=== PATIENT | male | born 1945 | race Caucasian/White ===

== ENCOUNTER 2019-07-30 09:05 | Emergency (ER) | payer MEDICARE, BC, SELFPAY ==
[2019-07-30 09:10] VITALS: BP 145/82; PULSE 106; RESP 20; TEMP 36.8; O2SAT 97
--- NOTE | 2019-07-30 09:35 | ED.GENADULT ---
HPI - General Adult General Chief complaint: Urogenital-Male Stated complaint: PROBLEMS URINATING Time Seen by Provider: 07/30/19 09:39 Source: patient and RN notes reviewed Mode of arrival: ambulatory Limitations: no limitations History of Present Illness HPI narrative: This is a 73 years old male presents to the office for an evaluation for possible UTI. Symptoms began three days ago with urinary pain, burning and suprapubic discomfort.He bought a home urine test kit which showed that he had UTI; so his give him her antibiotic)(cefuroxime) to take which she normally takes for her UTI. He took two days of it, which he develops diarrhea; so he stops and takes probiotic instead. Denies history of UTI in the past. Related Data Home Medications Medication Instructions Recorded Confirmed Probiotic 07/30/19 Senior Vitamin 07/30/19 ascorbic acid (vitamin C) [Vitamin 1 g PO DAILY 07/30/19 07/30/19 C] aspirin 81 mg PO DAILY 07/30/19 07/30/19 clopidogrel [Plavix] 75 mg PO DAILY 07/30/19 07/30/19 coQ10 (ubiquinol) 100 mg PO DAILY 07/30/19 07/30/19 ezetimibe 10 mg PO DAILY 07/30/19 07/30/19 fluocinonide TOPICAL 07/30/19 magnesium 07/30/19 metoprolol succinate 25 mg PO DAILY 07/30/19 07/30/19 nitroglycerin [Nitrostat] 0.3 mg SUBLINGUAL Q5-15M PRN 07/30/19 07/30/19 pantoprazole 40 mg PO DAILY 07/30/19 07/30/19 ramipril 5 mg PO DAILY 07/30/19 07/30/19 rosuvastatin 10 mg PO 3XW 07/30/19 07/30/19 Allergies Allergy/AdvReac Type Severity Reaction Status Date / Time Penicillins Allergy Mild Rash Verified 07/30/19 09:20 Review of Systems Review of Systems: Narrative: CONSTITUTIONAL:Reports fever and chills; but controlled with tylenol CARDIOVASCULAR: Denies chest pain, edema. RESPIRATORY: Denies cough GASTROINTESTINAL: Denies nausea or vomiting. Reports diarrhea with antibiotic which stopped after he stops taking it. GENITOURINARY:Denies penile discharge or bright blood SKIN: Denies rash MUSCULOSKELETAL: Denies acute back pain NEUROLOGIC: Denies lightheaded or dizziness PMFSH Past Medical History Medical History History of shingles HLD (hyperlipidemia) HTN (hypertension) IBS (irritable bowel syndrome) MRSA (methicillin resistant Staphylococcus aureus) TIA (transient ischemic attack) Surgical History Surgical History H/O heart artery stent Hx of appendectomy Social History Social History (Updated 07/30/19 @ 09:56 by DOLORES Billy) Smoking status: Never smoker Comments At time of signature, I agree with nursing past medical, surgical, social and family history. There is no relevant family history pertinent to the presenting complaint. Exam Narrative: Exam Narrative: GENERAL: This is a well-nourished, well-developed patient, in no apparent distress. CARDIOVASCULAR: Regular rate and rhythm without murmurs, gallops, or rubs. RESPIRATORY: Clear to auscultation. Breath sounds equal bilaterally. No wheezes, rales, or rhonchi. GASTROINTESTINAL: Abdomen soft, non-tender, nondistended. Bowel sounds are active. No hepato-splenomegaly, or palpable masses. No guarding. SKIN: warm, intact with no suspicious lesions or rash, good texture and turgor. NEURO: awake, alert, and oriented to person, place and time. There were no obvious focal neurologic abnormalities. Steady gait [place] Coma Scale Eye Opening: Spontaneous 4 Rene Coma Scale Motor: Obeys Commands 6 Rene Coma Scale Verbal: Oriented 5 Course Vital Signs Vital signs: Vital Signs Temperature 98.2 F 07/30/19 09:10 Pulse Rate 106 H 07/30/19 09:10 Respiratory Rate 07/30/19 09:10 Blood Pressure 145/82 H 07/30/19 09:10 Pulse Oximetry 97 07/30/19 09:10 Temperature 98.2 F 07/30/19 09:10 Pulse Rate 106 H 07/30/19 09:10 Respiratory Rate 07/30/19 09:10 Blood Pressure 145/82 H 07/30/19 09:10 Pulse Oxi
== END 2019-07-30 09:55 | disposition home or self-care (01) ==
PROVIDERS: Emergency Provider Nurse Practitioner; PCP Internal Medicine
DX: N30.01 Acute cystitis with hematuria (principal); R78.5 Finding of other psychotropic drug in blood; I10 Essential (primary) hypertension; Z86.73 Personal history of transient ischemic attack (TIA), and cerebral infarction without residual deficits; Z86.14 Personal history of Methicillin resistant Staphylococcus aureus infection
CPT/HCPCS: 81003; 87077; 87086; 87088; 87186; 99213; G0463

== ENCOUNTER 2020-06-02 16:39 | Inpatient (IN) | payer MEDICARE, BC, SELFPAY ==
[2020-06-02] VITALS (7 sets, daily range): BP systolic 134–168; BP diastolic 68–80; PULSE 78–115; RESP 18–20; TEMP 36.8–39.4; O2SAT 90–97; BMI 28.3
--- NOTE | ~2020-06-02 | XR_ITS ---
EXAMINATION: XR chest 1V portable DATE: 06/02/2020 17:37 INDICATION: Cough, shortness of breath and chest tightness. TECHNIQUE: frontal view of the chest was obtained. COMPARISON: Chest radiograph dated 05/01/2018 FINDINGS: Scattered bilateral airspace opacities most prominent in the right mid and left lower lung zones. No pleural effusion or pneumothorax. The cardiomediastinal silhouette is within normal limits for AP gurpreet hnique. Median sternotomy wires and mediastinal surgical clips are seen, likely from prior coronary a rtery bypass grafting. IMPRESSION: 1. Mild scattered bilateral opacities most prominent in the right mid and left lower lung zones which could represent atelectasis, pneumonia, pulmonary edema or some combination thereof. Reviewed, dictated and finalized at location A. GER POKER
--- NOTE | ~2020-06-02 | CT_ITS ---
EXAMINATION: CTA chest PE protocol DATE: 06/03/2020 14:24 OBIEE REPORT DEVELOPER INDICATION: Pleuritic discomfort. Elevated d-dimer. TECHNIQUE: Computed tomographic angiography (CTA) of the chest was performed with 100 mL Omnipaque-35 0 intravenous contrast. The dose-length product was 470.96 mGy-cm. Maximum intensity projection 3D-re constructions of the aorta and other arteries were constructed by the technologist on a separate work station. Automated exposure control and iterative reconstruction technique were employed. COMPARISON: Chest x-ray dated 06/02/2020. FINDINGS: Study is technically adequate without evidence for pulmonary embolism. There is mild medias tinal lymphadenopathy, likely reactive. No significant pleural or pericardial effusion. Moderate size hiatal hernia. No significant pleural or pericardial effusion. There is patchy groundglass opacification throughout both lungs, compatible with pneumonia. No endobr onchial lesions. No pneumothorax. Status post median sternotomy for CABG. Mild thoracic spondylosis. There is a 12 mm hypovascular lesion left hepatic lobe, image 27 the. There is a second hypovascular lesion of the right hepatic lobe with peripheral calcification measuring 10 mm, image 162. Consider c orrelation with ultrasound. IMPRESSION: 1. No evidence for pulmonary embolism. 2: Patchy extensive groundglass opacification throughout both lungs, compatible with pneumonia. 3: Mediastinal lymphadenopathy, likely reactive. 4: Moderate size hiatal hernia. Reviewed, dictated and finalized at location B. E REPORT DEVELOPER IMPRESSION: 1. No evidence for pulmonary embolism. 2: Patchy extensive groundglass opacification throughout both lungs, compatibl e with pneumonia. 3: Mediastinal lymphadenopathy, likely reactive. 4: Moderate size hiatal hernia.
--- NOTE | ~2020-06-02 | XR_ITS ---
EXAMINATION: XR chest 1V portable INDICATION: Shortness of breath, history of COVID 19 TECHNIQUE: Portable AP chest at 1141 hours COMPARISON: 06/02/2020 FINDINGS: Airspace opacities in the right upper lung zone have improved. There are worsening airspace opacities in the left mid and lower lung zones. Right basilar airspace opacities are stable. Small l eft pleural effusion is suggested. Heart size is normal. There is no pneumothorax. Median sternotomy wires and mediastinal surgical clips are seen, likely from prior coronary artery bypass grafting. IMPRESSION: 1. Airspace opacities with improvement on the right and worsening in the left mid and lower lung zone s, consistent with pneumonia. 2. Small left pleural effusion. Reviewed, dictated and finalized at location A. L WORKER IMPRESSION: 1. Airspace opacities with improvement on the right and worsening in the left m id and lower lung zones, consistent with pneumonia. 2. Small left pleural effusion.
--- NOTE | ~2020-06-02 | XR_ITS ---
XR chest 1V portable DATE: 06/08/2020 10:12 INDICATION: Covid 19 pneumonia. TECHNIQUE: Portable AP chest on June 08, 2020 at 1008 hours COMPARISON: April 05, 2021 portable AP chest at 1141 hours FINDINGS: Status post sternotomy. Heart size within normal range. Aortic arch calcification. Patchy infiltrates predominantly in the mid and lower lung zones persist relatively unchanged since F ebruary 03/2021. Diffuse osteopenia.. IMPRESSION: Persistent patchy bilateral predominantly mid and lower lung zone infiltrates Reviewed, dictated and finalized at location A. RESS IMPRESSION: Persistent patchy bilateral predominantly mid and lower lung zone i nfiltrates
--- NOTE | 2020-06-02 17:21 | ECG_ITS ---
Measurements Intervals [place] Rate: 109 P: 63 CO: 149 QRS: 61 QRSD: 93 T: 52 QT: 336 QTc: 453 Interpretive Statements SINUS TACHYCARDIA NONSPECIFIC T-WAVE ABNORMALITY- DIFFUSE LEADS BASELINE ARTIFACT- I, III, AVR, AVL, V3 ABNORMAL ECG Electronically Signed On 06-03-2020 6:55:02 CNC MILL PROGRAMMER by Mars Cabezas D.O.
--- NOTE | 2020-06-02 17:48 | ED.GENADULT ---
HPI - General Adult General Chief complaint: Upper Respiratory Infection Stated complaint: PCP WANTS COVID TEST, CHEST TIGHTNESS, SOB Time Seen by Provider: 06/02/20 17:19 Source: patient History of Present Illness HPI narrative: Patient is a 74 y/o male complaining moderate SOB for 2 weeks. He states that his SOB is worse last 1-2 days. His SOB is worse with exertion. He has fever upto 102.5 today. He took Tylenol which helped with his fever. He states that he was give Z-pack and Medrol dose pack recently by PCP. His PCP wants to him to come here for COVID testing. Related Data Home Medications Medication Instructions Recorded Confirmed Probiotic 07/30/19 Senior Vitamin 07/30/19 ascorbic acid (vitamin C) [Vitamin 1 g PO DAILY 07/30/19 07/30/19 C] aspirin 81 mg PO DAILY 07/30/19 07/30/19 clopidogrel [Plavix] 75 mg PO DAILY 07/30/19 07/30/19 coQ10 (ubiquinol) 100 mg PO DAILY 07/30/19 07/30/19 ezetimibe 10 mg PO DAILY 07/30/19 07/30/19 fluocinonide TOPICAL 07/30/19 magnesium 07/30/19 metoprolol succinate 25 mg PO DAILY 07/30/19 07/30/19 nitroglycerin [Nitrostat] 0.3 mg SUBLINGUAL Q5-15M PRN 07/30/19 07/30/19 pantoprazole 40 mg PO DAILY 07/30/19 07/30/19 ramipril 5 mg PO DAILY 07/30/19 07/30/19 rosuvastatin 10 mg PO 3XW 07/30/19 07/30/19 Allergies Allergy/AdvReac Type Severity Reaction Status Date / Time Penicillins Allergy Mild Rash Verified 07/30/19 09:20 Review of Systems Constitutional: Constitutional: Denies chills, Reports fever(s), Reports headache(s) and Denies weakness Eyes: Eyes: Denies blurry vision ENT: Reports headache(s) and Denies neck pain Cardiovascular: Cardiovascular: Denies chest pain and Reports dyspnea Respiratory: Respiratory: Reports cough and Reports dyspnea Gastrointestinal: Gastrointestinal: Denies abdominal pain, Denies diarrhea, Denies nausea and Denies vomiting Genitourinary: Genitourinary: Denies hematuria and Denies dysuria Musculoskeletal: Musculoskeletal: Denies back pain and Denies neck pain Neurologic: Reports headache(s) and Denies weakness [facility] Past Medical History Medical History (Updated 06/02/20 @ 21:45 by Kat Kay MD) History of shingles HLD (hyperlipidemia) HTN (hypertension) IBS (irritable bowel syndrome) MRSA (methicillin resistant Staphylococcus aureus) TIA (transient ischemic attack) Surgical History Surgical History H/O heart artery stent Hx of appendectomy Social History Social History Smoking status: Never smoker Exam Const: General: no acute distress and well developed Orientation/consciousness: oriented to person, oriented to place, oriented to time and patient oriented x3 HENMT: Head: normocephalic Ears: external ears normal General nose exam: Normal external nose present Eyes: General: appearance normal, both eyes and all related structures Conjunctivae: conjunctivae normal Neck: Neck: normal visual inspection and full ROM Chest: Chest palpation & inspection: normal inspection of the chest and no tenderness Resp: Effort & Inspection: normal respiratory effort Auscultation: clear to auscultation bilaterally Cardio: Rate: tachycardic Rhythm: regular rhythm GI: GI Palp: No abdominal tenderness and Yes Soft to palpation Skin: General skin exam: normal color and turgor normal Neuro: General: oriented to person, oriented to place, oriented to time and patient oriented x3 Cognition (Neuro): normal cognition Extrem: General: normal to inspection, full ROM and no pedal edema Psych: Appearance: grossly normal Mental Status: mental status grossly normal Affect: normal affect Course Consultations Consultation #1: Discussed with ENRIQUE Ordaz, who agrees to admit. Date: 06/02/20 Time: 19:45 Vital Signs Vital signs: Vital Signs Temperature 36.8 C 06/02/20 17:25 Pulse Rate 108 H 06/02/20 17:25 Respirator
[2020-06-02 18:30] LABS: Basophils Percent Auto 0.2 % (0.2-1.2); Hematocrit 48.4 % (42.0-52.0); Immature Granulocyte Absolute 0.06 K/mm3 (0.00-0.031); Immature Granulocyte Percent A 0.6 % (0-0.5); Lymphocytes Absolute Auto 1.29 K/mm3 (0.9-3.2); Lymphocytes Percent Auto 13.8 % (18.3-44.2); Mean Corpuscular HGB Conc 33.1 g/dl (32-36); Mean Corpuscular Hemoglobin 29.7 pg (26-34); Mean Corpuscular Volume 89.8 fl (80-100); Mean Platelet Volume 9.3 fl (7.4-10.4); Monocytes Absolute Auto 0.2 K/mm3 (0.1-0.6); Monocytes Percent Auto 2.2 % (2.6-8.5); Neutrophils Absolute Auto 7.8 K/mm3 (1.3-6.7); Neutrophils Percent Auto 83.2 % (45.5-73.1); Platelet Count Result 305 k/mm3 (150-375); Red Blood Count 5.39 M/mm3 (4.6-6.20); Red Cell Distribution Width 14.3 % (11.5-14.5); White Blood Count 9.4 K/mm3 (4.5-10.0)
[2020-06-02 18:45] LABS: Alanine Aminotransferase 77 U/L (4-50); Alkaline Phosphatase 79 U/L (38-126); Anion Gap 5 mmol/L (8-16); Aspartate Amino Transferase 83 U/L (17-59); Bilirubin,Total 0.5 mg/dL (0.2-1.3); Blood Urea Nitrogen 32 mg/dL (9-20); Calcium 8.9 mg/dL (8.4-10.2); Carbon Dioxide 31 mmol/L (22-30); Chloride 106 mmol/L (98-107); Estimated CRCL calculation 35 ml/min; Estimated Glomerular Filt Rate 50; Glucose 116 mg/dL (75-110); Potassium 4.5 mmol/L (3.4-5.0); Sodium 142 mmol/L (137-145)
[2020-06-02 18:53] LABS: NT Pro B Type Natriuretic Pept 221 PG/ML (5-100)
[2020-06-02 18:56] LABS: Troponin I < 0.012 ng/mL (0.000-0.034)
[2020-06-02] MEDS: SODIUM CHLORIDE 0.9% IV 1,000 ML 999 ML IV CONT (19:58)
[2020-06-02] MEDS: DEXAMETHASONE SOD PHOS INJ 4 MG/ML VIAL 6 MG IV PUSH (21:02)
--- NOTE | 2020-06-02 21:42 | ADMGEN ---
This patient, Meir Ramírez, was admitted to 3 [facility] Surg Room 320-01. Patient/family oriented to hospital policies and general routines including ID bracelet, bed and alarms, visiting hours, pain management, procedures, bathroom and other care routines, personal items, smoking policy, room service/diet, and visiting hours. Information on how to activate the Rapid Response Team has been discussed. Patient/Family are encouraged to report perceived risks to care and to ask questions if they do not understand what they are told or what they should do.
[2020-06-02] MEDS: ACETAMINOPHEN 325 MG TABLET 650 MG PO (22:49)
[2020-06-02 23:53] LABS: Troponin I 0.024 ng/mL (0.000-0.034)
[2020-06-03] VITALS (12 sets, daily range): BP systolic 133–143; BP diastolic 56–71; PULSE 73–113; RESP 18–22; TEMP 36.5–37.7; O2SAT 90–93
--- NOTE | 2020-06-03 01:50 | PM.IMHP ---
H&P: HPI History of Present Illness Date/Time: 06/03/20 03:30 Chief Complaint: I think I have Covid Narrative: Meir Ramírez is a 74 year old male with a past medical history of coronary artery disease, hypertension, and distant history of tobacco use who presented to the ER. The patient reports that he was exposed to Covid about 2 weeks ago when his granddaughter was exposed at school. Several days later he began having fevers, nonproductive cough, mild headache and fatigue. Then on the he developed dyspnea on exertion and could not make it more than a few feet. He denies any lower extremity swelling, orthopnea or paroxysmal nocturnal dyspnea. He noticed that his pulse ox had dropped from prior values of 98% down to 90% and subsequently came to the ER. 90% on 2 L nasal cannula. He reports pleuritic chest pain. He reports that his fever was as high as 102. He denies loss of sense of taste or smell. He has been having some looser stools once or twice a day. He denies any abdominal pain. He has been trying to drink plenty of fluids. He drinks decaffeinated tea by the [employer]. Review of Systems Review of Systems: Narrative: 12 systems were reviewed with pertinent positives and negatives per HPI. Except as documented in the HPI, all other systems were reviewed and are negative. [facility] Past Medical History Medical History (Updated 06/03/20 @ 04:30 by Jany Robert DO) Carotid stenosis, bilateral With complete occlusion of the left carotid since 1996 Coronary artery disease Dyslipidemia Eczema Essential hypertension History of shingles IBS (irritable bowel syndrome) MRSA (methicillin resistant Staphylococcus aureus) Skin cancer Resected from forehead Spinal stenosis TIA (transient ischemic attack) Surgical History Surgical History (Updated 06/03/20 @ 04:30 by Jany Robert DO) Femoral artery stenosis, left With stent placement History of right inguinal hernia repair Approximately 2004 Hx of appendectomy Hx of CABG 3 vessel CABG 1996 Family History Family History (Updated 06/03/20 @ 04:33 by Jany Robert DO) Father Acute myocardial infarction, Onset Age: 40 Heart disease Mother Heart disease Social History Social History (Updated 06/03/20 @ 04:48 by Jany Robert DO) Social History: He lives in [place] with his of 44 years. They have 3 daughters who are in good health. 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 He is a former smoker and smoked 2 packs per day for approximately 38 years and quit smoking in 1996. He does not drink alcohol use illicit substances. Primary care physician: Dr. Mirza Moore Code status: Full code Surrogate decision maker: Smoking status: Former smoker Tobacco type: cigarettes Smoking end date: 06/23/96 Alcohol intake: never Substance use: never Spiritual care concerns: No Meds Home Medications and Allergies Home Medications Medication Instructions Recorded Confirmed Type ascorbic acid (vitamin C) [Vitamin 1 g PO DAILY 07/30/19 06/02/20 History C] aspirin 81 mg PO DAILY 07/30/19 06/02/20 History clopidogrel [Plavix] 75 mg PO DAILY 07/30/19 06/02/20 History coQ10 (ubiquinol) 100 mg PO DAILY 07/30/19 06/02/20 History magnesium 400 mg PO HS 07/30/19 06/02/20 History metoprolol succinate 25 mg PO DAILY 07/30/19 06/02/20 History nitroglycerin [Nitrostat] 0.3 mg SUBLINGUAL Q5-15M PRN 07/30/19 06/02/20 History pantoprazole 40 mg PO DAILY 07/30/19 06/02/20 History ramipril 5 mg PO DAILY 07/30/19 06/02/20 History rosuvastatin 10 mg PO 3XW 07/30/19 06/02/20 History Allergies Allergy/AdvReac Type Severity Reaction Status Date / Time Penicillins Allergy Mild Rash Verified 07/30/19 09:20 Vital Signs Vital Signs - 24 hr 06/02/20 17:25 06/02/20 19:59 06/02/20 20:00 Temperature 98.2 F Pulse Rate 108 H 78 Respiratory Rate 20 18 Blood P
[2020-06-03 07:35] LABS: Hematocrit 42.5 % (42.0-52.0); Hemoglobin 13.8 g/dL (14.0-18.0); Mean Corpuscular HGB Conc 32.5 g/dl (32-36); Mean Corpuscular Hemoglobin 28.8 pg (26-34); Mean Corpuscular Volume 88.7 fl (80-100); Mean Platelet Volume 9.4 fl (7.4-10.4); Platelet Count Result 286 k/mm3 (150-375); Red Blood Count 4.79 M/mm3 (4.6-6.20); Red Cell Distribution Width 13.9 % (11.5-14.5); White Blood Count 8.6 K/mm3 (4.5-10.0)
[2020-06-03 07:51] LABS: Alanine Aminotransferase 54 U/L (4-50); Albumin Level 3.3 g/dL (3.5-5.1); Alkaline Phosphatase 58 U/L (38-126); Anion Gap 6 mmol/L (8-16); Aspartate Amino Transferase 57 U/L (17-59); Bilirubin,Total 0.4 mg/dL (0.2-1.3); Blood Urea Nitrogen 23 mg/dL (9-20); Calcium 8.4 mg/dL (8.4-10.2); Carbon Dioxide 25 mmol/L (22-30); Chloride 109 mmol/L (98-107); Estimated CRCL calculation 64 ml/min; Estimated Glomerular Filt Rate > 60; Glucose 139 mg/dL (75-110); Lactate Dehydrogenase 767 U/L (313-618); Potassium 4.5 mmol/L (3.4-5.0); Sodium 140 mmol/L (137-145)
[2020-06-03 08:50] LABS: Hepatitis B Surface Antigen Negative (Negative)
[2020-06-03 08:56] LABS: HAV RESULT Negative (Negative); Hepatitis B Core IgM Result Negative (Negative)
[2020-06-03] MEDS: CLOPIDOGREL BISULFATE 75 MG TABLET PO (09:05)
[2020-06-03] MEDS: METOPROLOL SUCCINATE EXT REL 25 MG TABCR PO (09:05)
[2020-06-03] MEDS: ASCORBIC ACID 500 MG TABLET 1000 MG PO (09:05)
[2020-06-03 09:07] LABS: Hepatitis C Virus Antibody Negative (Negative)
[2020-06-03] MEDS: ramipriL 5 MG CAPSULE PO (09:09)
[2020-06-03] MEDS: ENOXAPARIN 40 MG/0.4 ML SYRINGE SUB-Q ×2 (09:09→20:50)
[2020-06-03] MEDS: ASPIRIN 81 MG ENTERIC TABLET PO (09:09)
[2020-06-03] MEDS: PANTOPRAZOLE 40 MG TABLET PO (09:09)
[2020-06-03] MEDS: ALBUTEROL SULFATE (*SP) AEROSOL 1 PUFF 6 PUFF INHALATION ×3 (09:15→20:51)
--- NOTE | 2020-06-03 13:24 | PM.IMPN ---
Progress Note: A&P Assessment and Plan (1) Acute respiratory failure with hypoxia: Code(s): J96.01 - Acute respiratory failure with hypoxia Status: Acute Assessment and Plan: Likely secondary to COVID-19 pneumonia given possible exposure, chest imaging, and acute phase reactants. Chest CTA negative for pulmonary embolism and was ordered due to D-dimer 1.3 and pleuritic discomfort. SARS-CoV-2 testing is ordered and pending. He is on 2 liters per nasal cannula today. Continue supplemental oxygen as needed to maintain oxygen saturation >90%, wean as tolerated Continue plan for treatment of pneumonia as outlined below (2) Pneumonia: Qualifiers: Pneumonia type: due to unspecified organism Laterality: bilateral Lung location: unspecified part of lung Qualified Code(s): J18.9 - Pneumonia, unspecified organism Code(s): J18.9 - Pneumonia, unspecified organism Status: Acute Assessment and Plan: The patient presented with non-productive cough, fever, mild headache and fatigue. CXR demonstrated mild scattered bilateral opacities and chest CTA is negative for pulmonary embolism but does show patchy, extensive ground glass opacities compatible with pneumonia. He has a possible COVID exposure as well. Pneumonia is likely secondary to COVID-19 infection. Continue empiric IV ceftriaxone and azithromycin ( day 2 - initiated 06/02/20) while awaiting SARS-CoV-2 testing results Continue dexamethasone (day 2 - initiated 06/02/20). Add remdesivir if SARS-CoV-2 testing is positive. Continue supportive care with albuterol per MDI, expectorant, tylenol as needed for fever, PEP therapy Continue isolation precautions Obtain urinary pneumococcal and legionella antigen testing and sputum culture Blood cultures obtained and pending (3) Person under investigation for COVID-19: Code(s): Z20.822 - Contact with and (suspected) exposure to COVID-19 Status: Acute Assessment and Plan: He reported possible exposure. SARS-CoV-2 testing ordered and pending. Continue isolation precautions Await results of testing (4) Sepsis: Qualifiers: Sepsis type: sepsis due to unspecified organism Sepsis acute organ dysfunction status: with acute organ dysfunction Severe sepsis acute organ dysfunction type: acute respiratory failure Acute respiratory failure type: with hypoxia Severe sepsis shock status: without septic shock Qualified Code(s): A41.9 - Sepsis, unspecified organism; R65.20 - Severe sepsis without septic shock; J96.01 - Acute respiratory failure with hypoxia Code(s): A41.9 - Sepsis, unspecified organism Status: Acute Assessment and Plan: Met on admission with fever and tachycardia. Blood pressures are stable and a bit elevated. Blood cultures were obtained and are pending. Await results of blood cultures Continue empiric IV antibiotics pending results of COVID-19 testing Monitor vitals and urine output (5) Acute renal injury: Code(s): N17.9 - Acute kidney failure, unspecified Status: Acute Assessment and Plan: Cr was 1.4 on admission and BUN 32. He was given 1 liter of fluids in the emergency department. Cr is 1.0 and BUN 23 today and he is likely back to baseline. Continue to monitor (6) Transaminitis: Code(s): R74.01 - Elevation of levels of liver transaminase levels Status: Acute Assessment and Plan: Likely secondary to COVID-19 infection, SARS-CoV-2 testing is pending. Hepatitis panel is negative. Continue to monitor (7) Hiatal hernia: Code(s): K44.9 - Diaphragmatic hernia without obstruction or gangrene Status: Acute Assessment and Plan: Chest CTA demonstrates known moderate sized hiatal hernia. He has had prior EGD for evaluation. He notes occasional heartburn. Continue pantoprazole (8) Essential hypertension: Code(s): I10 - Esse
[2020-06-03] MEDS: DEXAMETHASONE SOD PHOS INJ 4 MG/ML VIAL 6 MG IV PUSH (20:50)
[2020-06-03] MEDS: MAGNESIUM OXIDE 400 MG TABLET PO (20:50)
[2020-06-03] MEDS: guaiFENesin 12 HR 600 MG TABCR 1200 MG PO (20:50)
[2020-06-03] MEDS: ACETAMINOPHEN 325 MG TABLET 650 MG PO (22:01)
[2020-06-04] VITALS (8 sets, daily range): BP systolic 115–142; BP diastolic 50–70; PULSE 68–109; RESP 20–22; TEMP 36.8–37.4; O2SAT 90–93
[2020-06-04] MEDS: ALBUTEROL SULFATE (*SP) AEROSOL 1 PUFF 6 PUFF INHALATION ×6 (00:39→20:55)
[2020-06-04 08:25] LABS: Basophils Percent Auto 0.1 % (0.2-1.2); Hematocrit 43.4 % (42.0-52.0); Hemoglobin 14.4 g/dL (14.0-18.0); Immature Granulocyte Absolute 0.04 K/mm3 (0.00-0.031); Immature Granulocyte Percent A 0.5 % (0-0.5); Lymphocytes Absolute Auto 0.45 K/mm3 (0.9-3.2); Lymphocytes Percent Auto 5.2 % (18.3-44.2); Mean Corpuscular HGB Conc 33.2 g/dl (32-36); Mean Corpuscular Hemoglobin 29.3 pg (26-34); Mean Corpuscular Volume 88.4 fl (80-100); Mean Platelet Volume 9.4 fl (7.4-10.4); Monocytes Absolute Auto 0.3 K/mm3 (0.1-0.6); Neutrophils Absolute Auto 7.9 K/mm3 (1.3-6.7); Neutrophils Percent Auto 91.2 % (45.5-73.1); Platelet Count Result 333 k/mm3 (150-375); Red Blood Count 4.91 M/mm3 (4.6-6.20); Red Cell Distribution Width 14.2 % (11.5-14.5); White Blood Count 8.6 K/mm3 (4.5-10.0)
[2020-06-04 08:43] LABS: Lactate Dehydrogenase 967 U/L (313-618)
[2020-06-04 08:48] LABS: Alanine Aminotransferase 46 U/L (4-50); Albumin Level 3.5 g/dL (3.5-5.1); Alkaline Phosphatase 63 U/L (38-126); Anion Gap 7 mmol/L (8-16); Aspartate Amino Transferase 60 U/L (17-59); Bilirubin,Total 0.5 mg/dL (0.2-1.3); Blood Urea Nitrogen 26 mg/dL (9-20); Calcium 8.8 mg/dL (8.4-10.2); Carbon Dioxide 23 mmol/L (22-30); Chloride 108 mmol/L (98-107); Estimated CRCL calculation 58 ml/min; Estimated Glomerular Filt Rate > 60; Glucose 155 mg/dL (75-110); Magnesium 2.3 mg/dL (1.6-2.3); Sodium 138 mmol/L (137-145)
[2020-06-04 09:23] LABS: CRP 16.9 mg/dL (<1.0); Potassium 3.9 mmol/L (3.4-5.0)
[2020-06-04] MEDS: ENOXAPARIN 40 MG/0.4 ML SYRINGE SUB-Q ×2 (09:50→20:54)
[2020-06-04] MEDS: ramipriL 5 MG CAPSULE PO (09:51)
[2020-06-04] MEDS: REMDESIVIR 200 MG/NS 250 ML 200 MG/250 ML BAG 250 MG IVPB (09:51)
[2020-06-04] MEDS: PANTOPRAZOLE 40 MG TABLET PO (09:51)
[2020-06-04] MEDS: ASCORBIC ACID 500 MG TABLET 1000 MG PO (09:51)
[2020-06-04] MEDS: guaiFENesin 12 HR 600 MG TABCR 1200 MG PO ×2 (09:51→20:53)
[2020-06-04] MEDS: ASPIRIN 81 MG ENTERIC TABLET PO (09:51)
[2020-06-04 10:59] LABS: Influenza Control Positive
--- NOTE | 2020-06-04 11:32 | PM.IMPN ---
Progress Note: A&P Assessment and Plan (1) Acute respiratory failure with hypoxia: Code(s): J96.01 - Acute respiratory failure with hypoxia Status: Acute Assessment and Plan: Likely secondary to COVID-19 pneumonia given possible exposure, chest imaging, and acute phase reactants. Chest CTA negative for pulmonary embolism and was ordered due to D-dimer 1.3 and pleuritic discomfort. SARS-CoV-2 testing is ordered and pending. He was increased to 7 liters high-flow per nasal cannula. Continue supplemental oxygen as needed to maintain oxygen saturation >90%, wean as tolerated Continue plan for treatment of pneumonia as outlined below (2) Pneumonia: Qualifiers: Pneumonia type: due to unspecified organism Laterality: bilateral Lung location: unspecified part of lung Qualified Code(s): J18.9 - Pneumonia, unspecified organism Code(s): J18.9 - Pneumonia, unspecified organism Status: Acute Assessment and Plan: The patient presented with non-productive cough, fever, mild headache and fatigue. CXR demonstrated mild scattered bilateral opacities and chest CTA is negative for pulmonary embolism but does show patchy, extensive ground glass opacities compatible with pneumonia. He has a possible COVID exposure as well. Pneumonia is likely secondary to COVID-19 infection however SARS-CoV-2 test results delayed due to test machine dysfunction. Continue empiric IV ceftriaxone and azithromycin (day 3 - initiated 06/02/20) while awaiting SARS-CoV-2 testing results Continue dexamethasone (day 3 - initiated 06/02/20). Discussed that unfortunately, SARS-CoV-2 testing is delayed. I discussed with the patient and his that his case presentation looks very consistent with COVID-19 and he would like to start remdesivir since his results are delayed given strong clinical suspicion that this is COVID with increasing oxygen requirements. He verbalized understanding regarding the potential risks and lack of benefit if the COVID test is negative. Continue supportive care with albuterol per MDI, expectorant, tylenol as needed for fever, PEP therapy Continue isolation precautions Obtain urinary pneumococcal and legionella antigen testing and sputum culture Blood cultures obtained and pending (3) Person under investigation for COVID-19: Code(s): Z20.822 - Contact with and (suspected) exposure to COVID-19 Status: Acute Assessment and Plan: He reported possible exposure. SARS-CoV-2 testing ordered and pending. Continue isolation precautions Await results of testing (4) Sepsis: Qualifiers: Sepsis type: sepsis due to unspecified organism Sepsis acute organ dysfunction status: with acute organ dysfunction Severe sepsis acute organ dysfunction type: acute respiratory failure Acute respiratory failure type: with hypoxia Severe sepsis shock status: without septic shock Qualified Code(s): A41.9 - Sepsis, unspecified organism; R65.20 - Severe sepsis without septic shock; J96.01 - Acute respiratory failure with hypoxia Code(s): A41.9 - Sepsis, unspecified organism Status: Acute Assessment and Plan: Met on admission with fever and tachycardia. He is hemodynamically stable. Blood cultures were obtained and preliminary cultures show NGTD. Await results of blood cultures Continue empiric IV antibiotics pending results of COVID-19 testing Monitor vitals and urine output (5) Acute renal injury: Code(s): N17.9 - Acute kidney failure, unspecified Status: Resolved Assessment and Plan: Resolved. Cr was 1.4 on admission and BUN 32. He was given 1 liter of fluids in the emergency department. Cr is 1.0 and BUN 23 today and he is likely back to baseline. Continue to monitor (6) Transaminitis: Code(s): R74.01 - Elevation of levels of liver transaminase levels Status: Acute Assessment and Plan: Likely secondary
[2020-06-04 18:18] LABS: SARS-CoV-2 RNA PCR Positive
[2020-06-04] MEDS: DEXAMETHASONE SOD PHOS INJ 4 MG/ML VIAL 6 MG IV PUSH (20:53)
[2020-06-04] MEDS: CLOPIDOGREL BISULFATE 75 MG TABLET PO (20:54)
[2020-06-04] MEDS: METOPROLOL SUCCINATE EXT REL 25 MG TABCR PO (20:54)
[2020-06-04] MEDS: MAGNESIUM OXIDE 400 MG TABLET PO (20:55)
[2020-06-04] MEDS: ROSUVASTATIN 10 MG TABLET PO (20:55)
[2020-06-04 21:25] LABS: Add Urine Microscopic? YES; Appearance Urine Cloudy (Clear); Bacteria Urine Trace /hpf; Bilirubin Urine Negative (Negative); Blood Urine 2+ (Negative); Color Urine Yellow (Yellow); Glucose Urine UA Negative (Negative); Hyaline Casts Urine 15-19 /lpf; Ketones Urine Trace mg/dL (Negative); Leukocyte Esterase Ur Negative LEU/UL (Negative); Mucus Urine Heavy /lpf; Nitrate Urine Negative (Negative); Protein Urine 2+ mg/dL (Negative); RBC Urine 51-75 /hpf (0-2); Squamous Epithelial Cell Urine Occasional /hpf (Few); Urobilinogen Urine Negative mg/dL (<2.0); WBC Urine 16-20 /hpf
[2020-06-04 21:29] LABS: Specific Grav Ur 1.035 (1.001-1.035)
[2020-06-05] VITALS (16 sets, daily range): BP systolic 117–156; BP diastolic 48–72; PULSE 68–93; RESP 15–22; TEMP 35.7–37.6; O2SAT 90–96
[2020-06-05] MEDS: ALBUTEROL SULFATE (*SP) AEROSOL 1 PUFF 6 PUFF INHALATION ×2 (00:52→08:34)
[2020-06-05 06:30] LABS: Basophils Percent Auto 0.1 % (0.2-1.2); Hematocrit 42.6 % (42.0-52.0); Hemoglobin 14.1 g/dL (14.0-18.0); Immature Granulocyte Absolute 0.03 K/mm3 (0.00-0.031); Immature Granulocyte Percent A 0.4 % (0-0.5); Lymphocytes Absolute Auto 0.51 K/mm3 (0.9-3.2); Lymphocytes Percent Auto 6.8 % (18.3-44.2); Mean Corpuscular HGB Conc 33.1 g/dl (32-36); Mean Corpuscular Hemoglobin 29.4 pg (26-34); Mean Corpuscular Volume 88.8 fl (80-100); Mean Platelet Volume 9.5 fl (7.4-10.4); Monocytes Absolute Auto 0.2 K/mm3 (0.1-0.6); Monocytes Percent Auto 3.2 % (2.6-8.5); Neutrophils Absolute Auto 6.7 K/mm3 (1.3-6.7); Neutrophils Percent Auto 89.5 % (45.5-73.1); Platelet Count Result 334 k/mm3 (150-375); Red Cell Distribution Width 14.2 % (11.5-14.5); White Blood Count 7.5 K/mm3 (4.5-10.0)
[2020-06-05 06:41] LABS: Alanine Aminotransferase 55 U/L (4-50); Albumin Level 3.2 g/dL (3.5-5.1); Alkaline Phosphatase 61 U/L (38-126); Anion Gap 5 mmol/L (8-16); Aspartate Amino Transferase 73 U/L (17-59); Bilirubin,Total 0.5 mg/dL (0.2-1.3); Blood Urea Nitrogen 33 mg/dL (9-20); CRP 7.7 mg/dL (<1.0); Calcium 8.6 mg/dL (8.4-10.2); Carbon Dioxide 25 mmol/L (22-30); Chloride 110 mmol/L (98-107); Creatine Kinase 298 U/L (55-170); Estimated CRCL calculation 58 ml/min; Estimated Glomerular Filt Rate > 60; Glucose 139 mg/dL (75-110); Lactate Dehydrogenase 1195 U/L (313-618); Magnesium 2.4 mg/dL (1.6-2.3); Potassium 4.5 mmol/L (3.4-5.0); Sodium 140 mmol/L (137-145)
[2020-06-05] MEDS: ENOXAPARIN 40 MG/0.4 ML SYRINGE SUB-Q ×2 (08:35→19:52)
[2020-06-05] MEDS: REMDESIVIR 100 MG/NS 250 ML 100 MG/250 ML BAG 250 MG IVPB (08:41)
[2020-06-05 08:51] LABS: Hemoglobin A1C 5.8 % (<5.7)
--- NOTE | 2020-06-05 10:12 | PC.NURSE ---
Pt was NPO for an abdominal ultrasound and per at 1000 procedure cancelled and discontinue NPO. I had to undo NPO on the medications that were due at 0900. Giving 0900 medications at 1015.
[2020-06-05] MEDS: ramipriL 5 MG CAPSULE PO (10:15)
[2020-06-05] MEDS: ASCORBIC ACID 500 MG TABLET 1000 MG PO (10:15)
[2020-06-05] MEDS: ASPIRIN 81 MG ENTERIC TABLET PO (10:15)
[2020-06-05] MEDS: PANTOPRAZOLE 40 MG TABLET PO (10:16)
[2020-06-05] MEDS: TAMSULOSIN HCL 0.4 MG CAPSULE PO (10:19)
--- NOTE | 2020-06-05 10:27 | PM.IMPN ---
Progress Note: A&P Assessment and Plan (1) Acute respiratory failure with hypoxia: Code(s): J96.01 - Acute respiratory failure with hypoxia Status: Acute Assessment and Plan: Likely secondary to COVID-19 pneumonia with test results positive 06/04/20. Chest CTA was negative for pulmonary embolism and was ordered due to D-dimer 1.3 and pleuritic discomfort. He was increased to 9 liters high-flow per nasal cannula today. Continue supplemental oxygen as needed to maintain oxygen saturation >90%, wean as tolerated Continue plan for treatment of COVID-19 pneumonia as outlined below Initiate continuous pulse oximetry (2) Pneumonia due to COVID-19 virus: Code(s): U07.1 - COVID-19; J12.82 - Pneumonia due to coronavirus disease 2019 Status: Acute Assessment and Plan: The patient presented with non-productive cough, fever, mild headache and fatigue. CXR demonstrated mild scattered bilateral opacities and chest CTA is negative for pulmonary embolism but does show patchy, extensive ground glass opacities compatible with pneumonia with known possible COVID-19 exposure. SARS-CoV-2 testing performed 06/02/20 was positive on 06/04/20. Continue dexamethasone (day 3 - initiated 06/02/20) Continue remdesivir (day 2 - initiated 06/04/20) Discussed risks vs benefits of convalescent plasma with the patient and he would like to proceed. Continue supportive care with albuterol per MDI, expectorant, tylenol as needed for fever, PEP therapy Continue isolation precautions Urinary pneumococcal and legionella antigen testing is pending. Will try to obtain sputum culture. Blood cultures obtained and demonstrate NGTD IV antibiotics were discontinued 06/04/20 when positive COVID-19 test results were available as secondary bacterial infection is felt unlikely (3) Sepsis: Qualifiers: Sepsis type: sepsis due to unspecified organism Sepsis acute organ dysfunction status: with acute organ dysfunction Severe sepsis acute organ dysfunction type: acute respiratory failure Acute respiratory failure type: with hypoxia Severe sepsis shock status: without septic shock Qualified Code(s): A41.9 - Sepsis, unspecified organism; R65.20 - Severe sepsis without septic shock; J96.01 - Acute respiratory failure with hypoxia Code(s): A41.9 - Sepsis, unspecified organism Status: Acute Assessment and Plan: Met on admission with fever and tachycardia. He is hemodynamically stable. Blood cultures were obtained and preliminary cultures show NGTD. Secondary to COVID-19 pneumonia. Await results of blood cultures Monitor vitals and urine output (4) Acute renal injury: Code(s): N17.9 - Acute kidney failure, unspecified Status: Resolved Assessment and Plan: Resolved. Cr was 1.4 on admission and BUN 32. He was given 1 liter of fluids in the emergency department. Cr is 1.0 and BUN 33 today and he is likely back to baseline. Continue to monitor He does appear a bit dehydrated and I have encouraged oral fluid intake. (5) Transaminitis: Code(s): R74.01 - Elevation of levels of liver transaminase levels Status: Acute Assessment and Plan: Likely secondary to COVID-19 infection. Hepatitis panel is negative. Continue to monitor (6) Hiatal hernia: Code(s): K44.9 - Diaphragmatic hernia without obstruction or gangrene Status: Acute Assessment and Plan: Chest CTA demonstrates known moderate sized hiatal hernia. He has had prior EGD for evaluation. He notes occasional heartburn. Continue pantoprazole (7) Essential hypertension: Code(s): I10 - Essential (primary) hypertension Status: Chronic Assessment and Plan: Blood pressures are reasonable. Most recent BP was 134/63. Continue metoprolol and ramipril Continue to monitor and adjust treatment as necessary (8) Coronary artery disease: Code(s
[2020-06-05] MEDS: SODIUM CHLORIDE 0.9% IV 250 ML 30 ML IV CONT (16:15)
[2020-06-05 17:39] LABS: Troponin I < 0.012 ng/mL (0.000-0.034)
[2020-06-05] MEDS: METOPROLOL SUCCINATE EXT REL 25 MG TABCR PO (19:53)
[2020-06-05] MEDS: DEXAMETHASONE SOD PHOS INJ 4 MG/ML VIAL 6 MG IV PUSH (19:53)
[2020-06-05] MEDS: CLOPIDOGREL BISULFATE 75 MG TABLET PO (19:54)
[2020-06-05] MEDS: guaiFENesin 12 HR 600 MG TABCR 1200 MG PO (19:54)
[2020-06-05] MEDS: MAGNESIUM OXIDE 400 MG TABLET PO (19:54)
[2020-06-05 21:27] LABS: Pneumococcal Antigen Urine Not Detected (Not Detected)
[2020-06-06] VITALS (28 sets, daily range): BP systolic 106–141; BP diastolic 53–66; PULSE 62–117; RESP 20–28; TEMP 36.2–37; O2SAT 85–98
--- NOTE | 2020-06-06 | ECHO_ITS ---
Patient Info Name: Meir Ramírez Age: 74 years : 1945 Gender: Male Ht: 72 in Wt: 209 lbs BSA: 2.21 m2 HR: 77 bpm BP: 131 / 62 mmHg Heart Rhythm: Sinus Rhythm Technical Quality: Good Exam Date: 06/06/2020 1:09 PM Exam Location: [facility] Patient Status: Inpatient Admit Date: 06/03/2020 Staff Ordering Physician: Mary Jones PA-C Cap Maker: Yinka Malik RDCS Attending Provider: Mary Jones PA-C Referring Physician: Karen BLAND; Exam Type: CA echo doppler color flow Study Info Indications J96.01 - Acute respiratory failure with hypoxia Complete two-dimensional, color flow and Doppler transthoracic echocardiogram is performed. Strain analysis performed. History/Risk Factors Covid19+; Acute respiratory failure w/ hypoxia, CAD s/p 3v CABG 1996, HTN. Summary 1. Complete two-dimensional, color flow and Doppler transthoracic echocardiogram is performed. 2. Left ventricular systolic function is normal, estimated at 55-60%. 3. The left ventricular diastolic function is grade I diastolic dysfunction. 4. Left atrial chamber dimension is mildly enlarged. 5. There is mild aortic valve sclerosis. 6. There is trace mitral valve regurgitation. Left Ventricle Left ventricular chamber dimension is normal. Left ventricular systolic function is normal, estimated at 55-60%. The left ventricular diastolic function is grade I diastolic dysfunction. Right Ventricle Right ventricular chamber dimension is normal. Left Atria Left atrial chamber dimension is mildly enlarged. Right Atria Right atrial chamber dimension is normal. Aortic Valve The aortic valve is trileaflet. There is mild aortic valve sclerosis. Pulmonic Valve The pulmonic valve is not well visualized. Mitral Valve The mitral valve has normal leaflets. There is trace mitral valve regurgitation. Tricuspid Valve The tricuspid valve leaflets are normal. Pericardium/Pleural The pericardium appears normal. Aorta The aortic root size at the sinus of Valsalva is normal. Left Ventricular Outflow Tract Name Value Normal LVOT 2D LVOT Diameter 2.1 cm LVOT Doppler LVOT Peak Gradient 4 mmHg LVOT Mean Gradient 2 mmHg LVOT VTI 18 cm LVOT VTI/AV VTI Ratio 0.7 LVOT Stroke Volume 65 ml LVOT CO 5.2 l/min LVOT CI 2.4 l/min/m2 Mitral Valve Name Value Normal MV Doppler MV Decel [place] 363 cm/s2 MV PHT 68 ms MV Area (PHT) 3.3 cm2 4.0-5.0 MV Diastolic Function M
--- NOTE | 2020-06-06 03:28 | PCRCNOTE ---
Window of time for administration has passed. See next scheduled administration.
[2020-06-06 06:42] LABS: Hemoglobin 13.7 g/dL (14.0-18.0); Mean Corpuscular HGB Conc 33.4 g/dl (32-36); Mean Corpuscular Hemoglobin 29.7 pg (26-34); Mean Corpuscular Volume 88.7 fl (80-100); Mean Platelet Volume 9.5 fl (7.4-10.4); Platelet Count Result 347 k/mm3 (150-375); Red Blood Count 4.62 M/mm3 (4.6-6.20); Red Cell Distribution Width 14.1 % (11.5-14.5)
[2020-06-06 06:52] LABS: Alanine Aminotransferase 49 U/L (4-50); Albumin Level 3.1 g/dL (3.5-5.1); Alkaline Phosphatase 70 U/L (38-126); Anion Gap 6 mmol/L (8-16); Aspartate Amino Transferase 58 U/L (17-59); Bilirubin,Total 0.5 mg/dL (0.2-1.3); Blood Urea Nitrogen 34 mg/dL (9-20); CRP 4.8 mg/dL (<1.0); Calcium 8.4 mg/dL (8.4-10.2); Carbon Dioxide 25 mmol/L (22-30); Chloride 112 mmol/L (98-107); Estimated CRCL calculation 64 ml/min; Estimated Glomerular Filt Rate > 60; Glucose 138 mg/dL (75-110); Lactate Dehydrogenase 1265 U/L (313-618); Potassium 4.3 mmol/L (3.4-5.0); Sodium 143 mmol/L (137-145)
[2020-06-06 07:49] LABS: Legionella pneumophila Ag Ur Not Detected (Not Detected)
[2020-06-06] MEDS: guaiFENesin 12 HR 600 MG TABCR 1200 MG PO ×2 (09:51→19:56)
[2020-06-06] MEDS: PANTOPRAZOLE 40 MG TABLET PO (09:52)
[2020-06-06] MEDS: ASPIRIN 81 MG ENTERIC TABLET PO (09:52)
[2020-06-06] MEDS: ASCORBIC ACID 500 MG TABLET 1000 MG PO (09:52)
[2020-06-06] MEDS: ENOXAPARIN 40 MG/0.4 ML SYRINGE SUB-Q ×2 (09:52→19:55)
[2020-06-06] MEDS: REMDESIVIR 100 MG/NS 250 ML 100 MG/250 ML BAG 250 MG IVPB (09:53)
[2020-06-06] MEDS: ramipriL 5 MG CAPSULE PO (09:53)
[2020-06-06] MEDS: TAMSULOSIN HCL 0.4 MG CAPSULE PO (09:53)
[2020-06-06 11:21] LABS: Alveolar/Arterial O2 Gradient 594.2 mmHg; Base Excess ABG 0.4 mEq/l (+/-2.0); Fractional Inspired Oxygen 100 %; HCO3 ABG 23.5 mEq/l (22.0-26.0); Oxygen Content ABG 18.9 %vol (16.0-22.0); Oxyhemoglobin 95.3 % THb (90.0-100.0); PCO2 ABG 33.5 mmHg (35.0-45.0); PO2 ABG 85.3 mmHg (80.0-100.0); PO2 FiO2 Ratio Arterial Blood 0.85 %; Total Hemoglobin 14.1 g/dL (12.0-18.0); pH ABG 7.464 (7.350-7.450)
[2020-06-06 11:22] LABS: Device HIGH FLOW NASAL CANN; Site Drawn RIGHT BRACHIAL
[2020-06-06] MEDS: SALINE 0.65% NAS SOLN 44 ML BTL 1 SPRAY NASAL (11:47)
--- NOTE | 2020-06-06 12:57 | PM.IMPN ---
Progress Note: A&P Assessment and Plan (1) Acute respiratory failure with hypoxia: Code(s): J96.01 - Acute respiratory failure with hypoxia Status: Acute Assessment and Plan: Likely secondary to COVID-19 pneumonia with test results positive 06/04/20. Chest CTA was negative for pulmonary embolism. Pulmonology was consulted today given increased oxygen requirements to 15 liters high-flow and non-rebreather. Pulmonology was consulted today and input is greatly appreciated Continue supplemental oxygen as needed to maintain oxygen saturation >90%, wean as tolerated. Appreciate respiratory therapy recommendations. Continue plan for treatment of COVID-19 pneumonia as outlined below Continue continuous pulse oximetry Order echocardiogram (2) Pneumonia due to COVID-19 virus: Code(s): U07.1 - COVID-19; J12.82 - Pneumonia due to coronavirus disease 2019 Status: Acute Assessment and Plan: The patient presented with non-productive cough, fever, mild headache and fatigue. CXR demonstrated mild scattered bilateral opacities and chest CTA is negative for pulmonary embolism but does show patchy, extensive ground glass opacities compatible with pneumonia with known possible COVID-19 exposure. SARS-CoV-2 testing performed 06/02/20 was positive on 06/04/20. Repeat CXR demonstrates improvement of opacities on the right and worsening on left. CRP continues to improve. Continue dexamethasone (day 4 - initiated 06/02/20) Continue remdesivir (day 3 - initiated 06/04/20) He received convalescent plasma 06/05/20 Continue supportive care with albuterol per MDI, expectorant, tylenol as needed for fever, PEP therapy, prone positioning as tolerated Continue isolation precautions Urinary pneumococcal and legionella antigen testing negative. Sputum culture was inadequate due to squamous cells. Blood cultures obtained and demonstrate NGTD IV antibiotics were discontinued 06/04/20 when positive COVID-19 test results were available as secondary bacterial infection is felt unlikely (3) Sepsis: Qualifiers: Sepsis type: sepsis due to unspecified organism Sepsis acute organ dysfunction status: with acute organ dysfunction Severe sepsis acute organ dysfunction type: acute respiratory failure Acute respiratory failure type: with hypoxia Severe sepsis shock status: without septic shock Qualified Code(s): A41.9 - Sepsis, unspecified organism; R65.20 - Severe sepsis without septic shock; J96.01 - Acute respiratory failure with hypoxia Code(s): A41.9 - Sepsis, unspecified organism Status: Acute Assessment and Plan: Met on admission with fever and tachycardia. He is hemodynamically stable. Blood cultures were obtained and preliminary cultures show NGTD. Secondary to COVID-19 pneumonia. He afebrile with normal WBC. Await results of final blood cultures Monitor vitals and urine output (4) Acute renal injury: Code(s): N17.9 - Acute kidney failure, unspecified Status: Resolved Assessment and Plan: Resolved. Cr was 1.4 on admission and BUN 32. He was given 1 liter of fluids in the emergency department. Cr is 1.0 and BUN 34 today and he is likely back to baseline. Continue to monitor He does appear a bit dehydrated and I have encouraged oral fluid intake. (5) Transaminitis: Code(s): R74.01 - Elevation of levels of liver transaminase levels Status: Acute Assessment and Plan: Likely secondary to COVID-19 infection. Hepatitis panel is negative. Continue to monitor (6) Hiatal hernia: Code(s): K44.9 - Diaphragmatic hernia without obstruction or gangrene Status: Acute Assessment and Plan: Chest CTA demonstrates known moderate sized hiatal hernia. He has had prior EGD for evaluation. Continue pantoprazole (7) Essential hypertension: Code(s): I10 - Essential (primary) hypertension Status: Chronic
--- NOTE | 2020-06-06 14:36 | ECG_ITS ---
Measurements Intervals [place] Rate: 72 P: 56 RI: 134 QRS: 37 QRSD: 96 T: 180 QT: 411 QTc: 450 Interpretive Statements SINUS RHYTHM EARLY PRECORDIAL R/S TRANSITION T WAVE ABNORMALITY IN ANTEROLATERAL LEADS- CONSIDER ISCHEMIA BASELINE ARTIFACT- I, III ABNORMAL ECG Electronically Signed On 06-06-2020 15:47:50 NEEDLE PUNCH OPERATOR by Mars Cabezas D.O.
--- NOTE | 2020-06-06 14:53 | PM.CNPUL ---
Assessment and Plan Assessment and plan (1) Pneumonia due to COVID-19 virus: Onset Date: 06/02/20 Code(s): U07.1 - COVID-19; J12.82 - Pneumonia due to coronavirus disease 2019 Status: Acute Assessment and Plan: Patient is COVID positive on 06/02/2020. Influenza, urine Legionella and Streptococcus tests are negative. Dexamethasone was started on 06/02/2020. Remdesivir was started on 06/04/2020. Convalescent plasma was given on 06/05/2020. Patient had a CT angiogram that was negative for PE. Will check an echocardiogram to assess for LV dysfunction and/or valvular dysfunction. At this time it does not appear the patient is fluid overloaded. Patient has a history of tobacco use but is not diagnosed with COPD and there is no wheezing at this time. - Remdesivir for 10 days - Dexamethasone for 10 days - Continuous pulse oximetry - Prone positioning for 16 hours a day as toelrated. - Avoid any fluid overload, - Obtain echo to assess LV function . (2) Acute respiratory failure with hypoxia: Onset Date: 06/06/20 Code(s): J96.01 - Acute respiratory failure with hypoxia Status: Acute Assessment and Plan: Patient with hypoxemic respiratory failure from COVID pneumonia. 06/02 went from room air to 2 L nasal cannula 06/03 7 L NC 06/04 7 L NC 06/05 9 L NC 06/06 Now 15L NC with 10 L NRB. I recommend high flow nasal canula at this time. I spoke with patient and by speaker phone and patient is agreeable to BiPAP and intubation if needed. Full code. I discussed with Mary Jones Will follow with you. History of Present Illness History of Present Illness Consult date: 06/06/20 Requesting physician: Mary Jones PA-C Reason for consult: hypoxemia Chief complaint: acute respiratory failure with hypoxia Narrative: This is a new patient consult for COVID-19 pneumonia with hypoxemic respiratory failure. Patient is a 74-year-old man with a history of coronary artery disease, hypertension, hiatal hernia, spinal stenosis now with COVID pneumonia and hypoxemic respiratory failure.Patient states that he had a COVID exposure about 125 when he went to his daughter's house. The daughters entire family including 3 children tested positive for COVID. On 05/22/2020 patient was sick with a fever. Patient self quarantine himself and Mathieu Perez noted his blood oxygen got low. Patient presented to the emergency room on 06/02/[address] angiogram of the chest was negative for PE but demonstrated diffuse bilateral alveolar and interstitial multifocal pneumonia. Patient was initially on room air on 06/02. Later in the day on 06/02 he required 2 L oxygen and was started on dexamethasone. Patient continued to deteriorate and on 06/04 was started on REM de severe. On the patient required 7 L nasal cannula oxygen and was given convalescent plasma. On 06/06 the patient required 15 L nasal cannula along with 10 L non-rebreather to maintain his saturation at 94% and I was consulted. Patient is awake and alert on the above-mentioned oxygen in no respiratory distress. Patient states that his shortness of breath has worsened since his hospitalization but that he is able to recover from walking to the bathroom more easily now. Patient denies any fever, chills, hemoptysis or phlegm production. Patient denies any chest pain. Past medical history patient has a history of tobacco use from [id number] at 1.5 pack per day (sees 57 pack years), patient was exposed to secondhand smoke from both parents. patient does not vary a pen has no exposure to illegal drugs. 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 Review of Systems Review of Systems: All systems reviewed & are unremarkable except as noted in HPI and below Eyes: Eyes: Reports no additional eye complaints ENT: Reports system reviewed and no additional complaints
[2020-06-06] MEDS: FUROSEMIDE INJ 40 MG/4 ML VIAL IV PUSH (15:25)
--- NOTE | 2020-06-06 15:50 | PC.NURSE ---
This patient, Meir Ramírez, was transferred to [facility] on 06/06/20 at 1550. Personal belongings sent with patient. Report given to Annie AGUILAR. Appropriate documentation sent with patient.
--- NOTE | 2020-06-06 16:41 | PC.NURSE ---
This patient, Meir Ramírez, was received from [[phone] ] on 06/06/20 at 1550. Patient/family oriented to unit policies and routines. Pt. A&O Person, place and time. No Distress noted. Pt 15l High flow, 15l Non rebreather.
[2020-06-06 19:35] LABS: Troponin I < 0.012 ng/mL (0.000-0.034)
[2020-06-06] MEDS: DEXAMETHASONE SOD PHOS INJ 4 MG/ML VIAL 6 MG IV PUSH (19:55)
[2020-06-06] MEDS: MAGNESIUM OXIDE 400 MG TABLET PO (19:56)
[2020-06-06] MEDS: CLOPIDOGREL BISULFATE 75 MG TABLET PO (19:56)
[2020-06-06] MEDS: METOPROLOL SUCCINATE EXT REL 25 MG TABCR PO (19:56)
[2020-06-06] MEDS: ROSUVASTATIN 10 MG TABLET PO (19:56)
[2020-06-06] MEDS: SODIUM CHLORIDE NASAL GEL 14.1 GM 1 APPLIC NASAL (20:11)
[2020-06-06 23:37] LABS: Troponin I < 0.012 ng/mL (0.000-0.034)
[2020-06-07] VITALS (24 sets, daily range): BP systolic 121–133; BP diastolic 60–78; PULSE 65–97; RESP 18–22; TEMP 36.2–36.7; O2SAT 91–96
[2020-06-07 04:33] LABS: Hematocrit 42.7 % (42.0-52.0); Hemoglobin 14.1 g/dL (14.0-18.0); Immature Granulocyte Absolute 0.05 K/mm3 (0.00-0.031); Immature Granulocyte Percent A 0.6 % (0-0.5); Lymphocytes Absolute Auto 0.76 K/mm3 (0.9-3.2); Lymphocytes Percent Auto 9.6 % (18.3-44.2); Mean Corpuscular Hemoglobin 29.3 pg (26-34); Mean Corpuscular Volume 88.8 fl (80-100); Mean Platelet Volume 9.3 fl (7.4-10.4); Monocytes Absolute Auto 0.2 K/mm3 (0.1-0.6); Neutrophils Absolute Auto 6.9 K/mm3 (1.3-6.7); Neutrophils Percent Auto 86.8 % (45.5-73.1); Platelet Count Result 363 k/mm3 (150-375); Red Blood Count 4.81 M/mm3 (4.6-6.20); Red Cell Distribution Width 13.9 % (11.5-14.5); White Blood Count 7.9 K/mm3 (4.5-10.0)
[2020-06-07 04:49] LABS: Alanine Aminotransferase 54 U/L (4-50); Albumin Level 3.3 g/dL (3.5-5.1); Alkaline Phosphatase 81 U/L (38-126); Anion Gap 4 mmol/L (8-16); Aspartate Amino Transferase 63 U/L (17-59); Bilirubin,Total 0.6 mg/dL (0.2-1.3); Blood Urea Nitrogen 37 mg/dL (9-20); CRP 4.4 mg/dL (<1.0); Calcium 8.8 mg/dL (8.4-10.2); Carbon Dioxide 27 mmol/L (22-30); Chloride 109 mmol/L (98-107); Creatine Kinase 138 U/L (55-170); Estimated CRCL calculation 58 ml/min; Estimated Glomerular Filt Rate > 60; Glucose 154 mg/dL (75-110); Lactate Dehydrogenase 1163 U/L (313-618); Magnesium 2.5 mg/dL (1.6-2.3); Potassium 4.4 mmol/L (3.4-5.0); Sodium 140 mmol/L (137-145)
[2020-06-07 09:24] LABS: Add Urine Microscopic? YES; Appearance Urine Clear (Clear); Bilirubin Urine Negative (Negative); Blood Urine 3+ (Negative); Color Urine Yellow (Yellow); Glucose Urine UA Negative (Negative); Ketones Urine Negative (Negative); Leukocyte Esterase Ur Negative LEU/UL (NEGATIVE); Mucus Urine Few /lpf; Nitrate Urine Negative (Negative); Protein Urine 1+ mg/dL (Negative); RBC Urine >75 /hpf (0-2); Specific Grav Ur 1.027 (1.001-1.035); Urobilinogen Urine Negative mg/dL (<2.0)
--- NOTE | 2020-06-07 09:35 | PM.IMPN ---
Progress Note: A&P Assessment and Plan (1) Acute respiratory failure with hypoxia: Onset Date: 06/06/20 Code(s): J96.01 - Acute respiratory failure with hypoxia Status: Acute Assessment and Plan: Likely secondary to COVID-19 pneumonia with test results positive 06/04/20. Chest CTA was negative for pulmonary embolism. Pulmonology was consulted today given increased oxygen requirements to 15 liters high-flow and 12 liters non-rebreather. Echocardiogram ordered due to progressive oxygen requirements shows normal LV systolic function with EF 55-60%, grade I diastolic dysfunction, mild left atrial enlargement, mild aortic sclerosis, and trace mitral regurgitation. Pulmonology was consulted today and input is greatly appreciated Continue supplemental oxygen as needed to maintain oxygen saturation >90%, wean as tolerated. Appreciate respiratory therapy recommendations. Continue plan for treatment of COVID-19 pneumonia as outlined below Continue continuous pulse oximetry (2) Pneumonia due to COVID-19 virus: Onset Date: 06/02/20 Code(s): U07.1 - COVID-19; J12.82 - Pneumonia due to coronavirus disease 2019 Status: Acute Assessment and Plan: The patient presented with non-productive cough, fever, mild headache and fatigue. CXR demonstrated mild scattered bilateral opacities and chest CTA is negative for pulmonary embolism but does show patchy, extensive ground glass opacities compatible with pneumonia with known possible COVID-19 exposure. SARS-CoV-2 testing performed 06/02/20 was positive on 06/04/20. Repeat CXR demonstrates improvement of opacities on the right and worsening on left. CRP continues to improve. Continue dexamethasone (day 6 - initiated 06/02/20) Continue remdesivir (day 4 - initiated 06/04/20) He received convalescent plasma 06/05/20 Continue supportive care with albuterol per MDI, expectorant, tylenol as needed for fever, PEP therapy, prone positioning as tolerated, add incentive spirometry given limited mobility Continue isolation precautions Urinary pneumococcal and legionella antigen testing negative. Sputum culture was inadequate due to squamous cells. Will repeat sputum culture. Blood cultures obtained and demonstrate NGTD IV antibiotics were discontinued 06/04/20 when positive COVID-19 test results were available as secondary bacterial infection is felt unlikely (3) Sepsis: Qualifiers: Sepsis type: sepsis due to unspecified organism Sepsis acute organ dysfunction status: with acute organ dysfunction Severe sepsis acute organ dysfunction type: acute respiratory failure Acute respiratory failure type: with hypoxia Severe sepsis shock status: without septic shock Qualified Code(s): A41.9 - Sepsis, unspecified organism; R65.20 - Severe sepsis without septic shock; J96.01 - Acute respiratory failure with hypoxia Code(s): A41.9 - Sepsis, unspecified organism Status: Acute Assessment and Plan: Met on admission with fever and tachycardia. He is hemodynamically stable. Blood cultures were obtained and preliminary cultures show NGTD. Secondary to COVID-19 pneumonia. He afebrile with normal WBC. Await results of final blood cultures Monitor vitals and urine output (4) Acute renal injury: Code(s): N17.9 - Acute kidney failure, unspecified Status: Resolved Assessment and Plan: Resolved. Cr was 1.4 on admission and BUN 32. He was given 1 liter of fluids in the emergency department. Cr is 1.1 and BUN 37 today and he is likely back to baseline. Continue to monitor He does appear a bit dehydrated and I have encouraged oral fluid intake. (5) Transaminitis: Code(s): R74.01 - Elevation of levels of liver transaminase levels Status: Acute Assessment and Plan: Likely secondary to COVID-19 infection and LFTs did normalize. Hepatitis panel is negative. AST (63) and ALT (54) - mildly elevated today (05/26
[2020-06-07] MEDS: ASCORBIC ACID 500 MG TABLET 1000 MG PO (10:39)
[2020-06-07] MEDS: ASPIRIN 81 MG ENTERIC TABLET PO (10:40)
[2020-06-07] MEDS: ramipriL 5 MG CAPSULE PO (10:40)
[2020-06-07] MEDS: ENOXAPARIN 40 MG/0.4 ML SYRINGE SUB-Q ×2 (10:40→20:47)
[2020-06-07] MEDS: PANTOPRAZOLE 40 MG TABLET PO (10:40)
[2020-06-07] MEDS: REMDESIVIR 100 MG/NS 250 ML 100 MG/250 ML BAG 250 MG IVPB (10:40)
[2020-06-07] MEDS: TAMSULOSIN HCL 0.4 MG CAPSULE PO (10:40)
[2020-06-07] MEDS: guaiFENesin 12 HR 600 MG TABCR 1200 MG PO ×2 (10:40→20:47)
--- NOTE | 2020-06-07 15:34 | PM.PNPUL ---
Progress Note: A&P Assessment and Plan (1) Pneumonia due to COVID-19 virus: Onset Date: 06/02/20 Code(s): U07.1 - COVID-19; J12.82 - Pneumonia due to coronavirus disease 2019 Status: Acute Assessment and Plan: Continue with Remdesivir and Dexamethasone for a total of 10 days Continue DVT prophylaxis with Lovenox 40 mg subcu Q12h encouraged to lay in prone positioning for 12-16 hours a day as tolerated (2) Acute respiratory failure with hypoxia: Onset Date: 06/06/20 Code(s): J96.01 - Acute respiratory failure with hypoxia Status: Acute Assessment and Plan: continue high-flow oxygen and BiPAP to maintain O2 saturations 88% or above. Continue to encourage prone positioning for 12-16 hours a day as tolerated. Subjective Date/time seen: 06/07/20 15:34 Interval history: 74-year-old male with a history of coronary artery disease status post CABG, hypertension, hyperlipidemia, gastroesophageal reflux disease who presents with COVID-19 and acute hypoxic respiratory failure. Symptoms started on May 22. He is currently on dexamethasone, remdedisvir and he has received 1 unit of convalescent plasma. At rest he does not appear to be in any respiratory distress but he is on a combination of high-flow oxygen through nasal prongs with 100% non-rebreather face mask. He gets short of breath with minimal exertion such as moving to the side of the bed to urinate. He has a 50 pack year smoking history and quit many years ago but was never formally diagnosed with COPD or other lung diseases and prior to his illness was never on any inhalers. Review of Systems Review of Systems: All systems reviewed & are unremarkable except as noted in HPI and below Exam Const: General: cooperative, healthy appearing, comfortable and no acute distress Orientation/consciousness: oriented to person, oriented to place and oriented to time HENMT: Head: normal to inspection Ears: hearing grossly normal bilaterally Mouth: Yes Normal oral and palatal mucosa present Throat: tonsils absent Eyes: General: appearance normal, both eyes and all related structures Neck: Neck: normal visual inspection and no JVD Chest: Chest palpation & inspection: normal inspection of the chest Resp: Auscultation: crackles, no rales, no rhonchi and no wheezes Cardio: Jugular venous distension: no JVD Rate: regular rate GI: Inspection: normal to inspection and non-distended GI Palp: Yes Soft to palpation, No Tenderness to palpation present (GI) and No Guarding due to palpation present (GI) Skin: General skin exam: normal color Neuro: General: oriented to person, oriented to place and oriented to time Speech: normal speech Extrem: General: normal to inspection and no edema Psych: Appearance: grossly normal Mental Status: mental status grossly normal Affect: normal affect Objective Data Vital Signs Vital Signs: Vital Signs - 24 hr 06/06/20 15:36 06/06/20 15:45 06/06/20 16:00 Temperature 36.3 C L Pulse Rate 62 66 89 Respiratory Rate 20 20 28 H Blood Pressure 131/66 Pulse Oximetry 90 06/06/20 19:56 06/06/20 20:00 06/06/20 21:06 Temperature 36.4 C L Pulse Rate 89 89 74 Respiratory Rate 24 H 20 Blood Pressure 106/53 L Pulse Oximetry 94 06/06/20 21:36 06/06/20 21:39 06/06/20 21:40 Temperature Pulse Rate 117 H 104 H 74 Respiratory Rate 20 20 Blood Pressure Pulse Oximetry 96 06/06/20 23:33 06/06/20 23:45 06/07/20 00:00 Temperature 36.3 C L Pulse Rate 95 78 Respiratory Rate 22 H Blood Pressure 121/66 Pulse Oximetry 96 92 06/07/20 03:46 06/07/20 03:47 06/07/20 04:00 Temperature 36.2 C L Pulse Rate 70 70 65 Respiratory Rate 20 20 20 Blood Pressure 121/60 Pulse Oximetry 95 93 06/07/20 04:06 06/07/20 08:00 06/07/20 09:35 Temperature 36.7 C Pulse Rate 81 70 89 Respiratory Rate 20 20 20 Blood Pressure 133/78 Pulse Oximetry 95
[2020-06-07 16:50] LABS: Vitamin D 25 Hydroxy 65.1 ng/mL
[2020-06-07] MEDS: MAGNESIUM OXIDE 400 MG TABLET PO (20:47)
[2020-06-07] MEDS: METOPROLOL SUCCINATE EXT REL 25 MG TABCR PO (20:47)
[2020-06-07] MEDS: DEXAMETHASONE SOD PHOS INJ 4 MG/ML VIAL 6 MG IV PUSH (20:47)
[2020-06-07] MEDS: CLOPIDOGREL BISULFATE 75 MG TABLET PO (20:57)
[2020-06-07] MEDS: SODIUM CHLORIDE NASAL GEL 14.1 GM 1 APPLIC NASAL (20:57)
[2020-06-08] VITALS (31 sets, daily range): BP systolic 118–138; BP diastolic 52–77; PULSE 58–110; RESP 18–24; TEMP 36.4–36.9; O2SAT 91–100
[2020-06-08 04:52] LABS: Hematocrit 43.6 % (42.0-52.0); Hemoglobin 14.3 g/dL (14.0-18.0); Immature Granulocyte Absolute 0.05 K/mm3 (0.00-0.031); Immature Granulocyte Percent A 0.6 % (0-0.5); Lymphocytes Absolute Auto 0.51 K/mm3 (0.9-3.2); Lymphocytes Percent Auto 6.1 % (18.3-44.2); Mean Corpuscular HGB Conc 32.8 g/dl (32-36); Mean Corpuscular Hemoglobin 29.2 pg (26-34); Mean Corpuscular Volume 89.2 fl (80-100); Mean Platelet Volume 9.8 fl (7.4-10.4); Monocytes Absolute Auto 0.2 K/mm3 (0.1-0.6); Monocytes Percent Auto 2.6 % (2.6-8.5); Neutrophils Absolute Auto 7.6 K/mm3 (1.3-6.7); Neutrophils Percent Auto 90.7 % (45.5-73.1); Platelet Count Result 392 k/mm3 (150-375); Red Blood Count 4.89 M/mm3 (4.6-6.20); Red Cell Distribution Width 13.7 % (11.5-14.5); White Blood Count 8.4 K/mm3 (4.5-10.0)
[2020-06-08 05:00] LABS: Alanine Aminotransferase 50 U/L (4-50); Albumin Level 3.2 g/dL (3.5-5.1); Alkaline Phosphatase 83 U/L (38-126); Anion Gap 3 mmol/L (8-16); Aspartate Amino Transferase 53 U/L (17-59); Bilirubin,Total 0.6 mg/dL (0.2-1.3); Blood Urea Nitrogen 32 mg/dL (9-20); CRP 5.7 mg/dL (<1.0); Calcium 8.7 mg/dL (8.4-10.2); Carbon Dioxide 27 mmol/L (22-30); Chloride 110 mmol/L (98-107); Creatine Kinase 121 U/L (55-170); Estimated CRCL calculation 58 ml/min; Estimated Glomerular Filt Rate > 60; Glucose 163 mg/dL (75-110); Lactate Dehydrogenase 1049 U/L (313-618); Potassium 4.7 mmol/L (3.4-5.0); Sodium 140 mmol/L (137-145)
--- NOTE | 2020-06-08 09:40 | PM.IMPN ---
Progress Note: A&P Assessment and Plan (1) Acute respiratory failure with hypoxia: Onset Date: 06/06/20 Code(s): J96.01 - Acute respiratory failure with hypoxia Status: Acute Assessment and Plan: Likely secondary to COVID-19 pneumonia with test results positive 06/04/20. Chest CTA was negative for pulmonary embolism. Pulmonology was consulted 06/06 given increased oxygen requirements. Echocardiogram ordered due to progressive oxygen requirements shows normal LV systolic function with EF 55-60%, grade I diastolic dysfunction, mild left atrial enlargement, mild aortic sclerosis, and trace mitral regurgitation. He is on 15 liters high-flow and 15 liters non-rebreather with oxygen saturations of 98% today. Pulmonology was consulted today and input is greatly appreciated Continue supplemental oxygen as needed to maintain oxygen saturation >90%, wean as tolerated. Appreciate respiratory therapy recommendations. Continue plan for treatment of COVID-19 pneumonia as outlined below Continue continuous pulse oximetry (2) Pneumonia due to COVID-19 virus: Onset Date: 06/02/20 Code(s): U07.1 - COVID-19; J12.82 - Pneumonia due to coronavirus disease 2019 Status: Acute Assessment and Plan: The patient presented with non-productive cough, fever, mild headache and fatigue. CXR demonstrated mild scattered bilateral opacities. Chest CTA negative for pulmonary embolism but does show patchy, extensive ground glass opacities compatible with pneumonia with known possible COVID-19 exposure. SARS-CoV-2 testing performed 06/02/20 was positive on 06/04/20. Continue dexamethasone (day 7 - initiated 06/02/20) Continue remdesivir (day 5 - initiated 06/04/20), will extend for an additional 5 days He received convalescent plasma 06/05/20 Continue supportive care with albuterol per MDI, expectorant, tylenol as needed for fever, PEP therapy, prone positioning as tolerated, add incentive spirometry given limited mobility. He feels significantly better following prone positioning overnight and I have encouraged that he try this throughout the day today too. Continue isolation precautions Urinary pneumococcal and legionella antigen testing negative. Sputum culture was inadequate due to squamous cells. Will repeat sputum culture. Blood cultures obtained and demonstrate NGTD IV antibiotics were discontinued 06/04/20 when positive COVID-19 test results were available as secondary bacterial infection is felt unlikely Will repeat CXR today (3) Sepsis: Qualifiers: Sepsis type: sepsis due to unspecified organism Sepsis acute organ dysfunction status: with acute organ dysfunction Severe sepsis acute organ dysfunction type: acute respiratory failure Acute respiratory failure type: with hypoxia Severe sepsis shock status: without septic shock Qualified Code(s): A41.9 - Sepsis, unspecified organism; R65.20 - Severe sepsis without septic shock; J96.01 - Acute respiratory failure with hypoxia Code(s): A41.9 - Sepsis, unspecified organism Status: Acute Assessment and Plan: Met on admission with fever and tachycardia. He is hemodynamically stable. Blood cultures were obtained and preliminary cultures show NGTD. Secondary to COVID-19 pneumonia. He afebrile with normal WBC. Await results of final blood cultures Monitor vitals and urine output (4) Acute renal injury: Code(s): N17.9 - Acute kidney failure, unspecified Status: Resolved Assessment and Plan: Resolved. Cr was 1.4 on admission and BUN 32. He was given 1 liter of fluids in the emergency department. Cr is 1.1 and BUN 32 today and he is likely back to baseline. Continue to monitor Renally dose medications, avoid nephrotoxins (5) Transaminitis: Code(s): R74.01 - Elevation of levels of liver transaminase levels Status: Acute Assessment and Plan: Likely secondary to COVID-19 infection
[2020-06-08] MEDS: PANTOPRAZOLE 40 MG TABLET PO (09:47)
[2020-06-08] MEDS: TAMSULOSIN HCL 0.4 MG CAPSULE PO (09:48)
[2020-06-08] MEDS: ramipriL 5 MG CAPSULE PO (09:48)
[2020-06-08] MEDS: ASPIRIN 81 MG ENTERIC TABLET PO (09:48)
[2020-06-08] MEDS: guaiFENesin 12 HR 600 MG TABCR 1200 MG PO ×2 (09:48→20:25)
[2020-06-08] MEDS: ASCORBIC ACID 500 MG TABLET 1000 MG PO (09:48)
[2020-06-08] MEDS: ENOXAPARIN 40 MG/0.4 ML SYRINGE SUB-Q ×2 (09:48→20:26)
[2020-06-08] MEDS: REMDESIVIR 100 MG/NS 250 ML 100 MG/250 ML BAG 250 MG IVPB (11:22)
[2020-06-08] MEDS: DOCUSATE SODIUM 100 MG CAPSULE PO ×2 (11:23→20:25)
--- NOTE | 2020-06-08 11:30 | PM.PNPUL ---
Progress Note: A&P Assessment and Plan (1) Pneumonia due to COVID-19 virus: Onset Date: 06/02/20 Code(s): U07.1 - COVID-19; J12.82 - Pneumonia due to coronavirus disease 2019 Status: Acute Assessment and Plan: Continue with Remdesivir and Dexamethasone for a total of 10 days Continue DVT prophylaxis with Lovenox 40 mg subcu Q12h encouraged to lay in prone positioning for 12-16 hours a day as tolerated (2) Acute respiratory failure with hypoxia: Onset Date: 06/06/20 Code(s): J96.01 - Acute respiratory failure with hypoxia Status: Acute Assessment and Plan: continue high-flow oxygen and BiPAP to maintain O2 saturations 92-96% or above. Continue to encourage prone positioning for 12-16 hours a day as tolerated. (3) Coronary artery disease: Code(s): I25.10 - Atherosclerotic heart disease of [place] coronary artery without angina pectoris Status: Chronic (4) Dyslipidemia: Code(s): E78.5 - Hyperlipidemia, unspecified Status: Chronic Subjective Date/time seen: 06/08/20 11:30 Interval history: he feels better today and was able to tolerate some prone positioning for a few hours yesterday. His appetite is well and he is eating and drinking. He feels less short of breath with transferring out of bed. Review of Systems Review of Systems: All systems reviewed & are unremarkable except as noted in HPI and below Exam Const: General: cooperative, healthy appearing, comfortable and no acute distress Orientation/consciousness: oriented to person, oriented to place and oriented to time HENMT: Head: normal to inspection Ears: hearing grossly normal bilaterally Mouth: Yes Normal oral and palatal mucosa present Throat: tonsils absent Eyes: General: appearance normal, both eyes and all related structures Neck: Neck: normal visual inspection and no JVD Chest: Chest palpation & inspection: normal inspection of the chest Resp: Auscultation: crackles, no rales, no rhonchi and no wheezes Cardio: Jugular venous distension: no JVD Rate: regular rate GI: Inspection: normal to inspection and non-distended GI Palp: Yes Soft to palpation, No Tenderness to palpation present (GI) and No Guarding due to palpation present (GI) Skin: General skin exam: normal color Neuro: General: oriented to person, oriented to place and oriented to time Speech: normal speech Extrem: General: normal to inspection and no edema Psych: Appearance: grossly normal Mental Status: mental status grossly normal Affect: normal affect Objective Data Vital Signs Vital Signs: Vital Signs - 24 hr 06/07/20 11:53 06/07/20 12:00 06/07/20 13:46 Temperature 36.4 C Pulse Rate 85 65 85 Respiratory Rate 20 20 20 Blood Pressure 123/64 Pulse Oximetry 94 92 06/07/20 14:00 06/07/20 16:00 06/07/20 16:50 Temperature 36.6 C Pulse Rate 85 97 87 Respiratory Rate 22 H 20 Blood Pressure 131/71 Pulse Oximetry 91 06/07/20 18:00 06/07/20 19:51 06/07/20 20:00 Temperature 36.4 C L Pulse Rate 97 91 Respiratory Rate 20 Blood Pressure 125/66 Pulse Oximetry 91 94 06/07/20 20:45 06/07/20 20:47 06/07/20 21:00 Temperature Pulse Rate 72 87 88 Respiratory Rate 20 20 Blood Pressure Pulse Oximetry 95 06/07/20 22:00 06/07/20 23:50 06/07/20 23:53 Temperature 36.3 C L Pulse Rate 91 96 Respiratory Rate 20 Blood Pressure 130/62 Pulse Oximetry 94 96 06/08/20 00:00 06/08/20 00:49 06/08/20 00:59 Temperature Pulse Rate 93 88 91 Respiratory Rate 20 20 Blood Pressure Pulse Oximetry 06/08/20 03:55 06/08/20 04:00 06/08/20 04:42 Temperature 36.4 C Pulse Rate 59 L 81 Respiratory Rate 22 H 18 Blood Pressure 118/52 L Pulse Oximetry 98 99 06/08/20 04:50 06/08/20 05:32 06/08/20 07:58 Temperature 36.6 C Pulse Rate 80 58 L 74 Respiratory Rate 18 22 H Blood Pressure 131/74 Pulse Oximetry 93 06/08/20 08:00 06/08
[2020-06-08] MEDS: DEXAMETHASONE SOD PHOS INJ 4 MG/ML VIAL 6 MG IV PUSH (20:25)
[2020-06-08] MEDS: METOPROLOL SUCCINATE EXT REL 25 MG TABCR PO (20:25)
[2020-06-08] MEDS: CLOPIDOGREL BISULFATE 75 MG TABLET PO (20:25)
[2020-06-08] MEDS: MAGNESIUM OXIDE 400 MG TABLET PO (20:25)
[2020-06-08] MEDS: SODIUM CHLORIDE NASAL GEL 14.1 GM 1 APPLIC NASAL (20:26)
[2020-06-09] VITALS (27 sets, daily range): BP systolic 103–133; BP diastolic 43–80; PULSE 57–115; RESP 16–26; TEMP 36.1–36.8; O2SAT 88–98
[2020-06-09 04:57] LABS: Basophils Percent Auto 0.2 % (0.2-1.2); Hematocrit 42.9 % (42.0-52.0); Hemoglobin 14.1 g/dL (14.0-18.0); Immature Granulocyte Absolute 0.05 K/mm3 (0.00-0.031); Immature Granulocyte Percent A 0.6 % (0-0.5); Lymphocytes Absolute Auto 0.52 K/mm3 (0.9-3.2); Lymphocytes Percent Auto 5.9 % (18.3-44.2); Mean Corpuscular HGB Conc 32.9 g/dl (32-36); Mean Corpuscular Hemoglobin 29.1 pg (26-34); Mean Corpuscular Volume 88.5 fl (80-100); Mean Platelet Volume 9.8 fl (7.4-10.4); Monocytes Absolute Auto 0.2 K/mm3 (0.1-0.6); Monocytes Percent Auto 2.1 % (2.6-8.5); Neutrophils Absolute Auto 8.1 K/mm3 (1.3-6.7); Neutrophils Percent Auto 91.2 % (45.5-73.1); Platelet Count Result 392 k/mm3 (150-375); Red Blood Count 4.85 M/mm3 (4.6-6.20); Red Cell Distribution Width 13.7 % (11.5-14.5); White Blood Count 8.9 K/mm3 (4.5-10.0)
[2020-06-09 06:06] LABS: Alanine Aminotransferase 44 U/L (4-50); Albumin Level 3.1 g/dL (3.5-5.1); Alkaline Phosphatase 87 U/L (38-126); Anion Gap 4 mmol/L (8-16); Aspartate Amino Transferase 48 U/L (17-59); Bilirubin,Total 0.6 mg/dL (0.2-1.3); Blood Urea Nitrogen 32 mg/dL (9-20); Calcium 8.7 mg/dL (8.4-10.2); Carbon Dioxide 29 mmol/L (22-30); Chloride 107 mmol/L (98-107); Creatine Kinase 297 U/L (55-170); Estimated CRCL calculation 64 ml/min; Estimated Glomerular Filt Rate > 60; Glucose 147 mg/dL (75-110); Magnesium 2.5 mg/dL (1.6-2.3); Potassium 4.6 mmol/L (3.4-5.0); Sodium 140 mmol/L (137-145)
--- NOTE | 2020-06-09 08:33 | PM.IMPN ---
Progress Note: A&P Assessment and Plan (1) Acute respiratory failure with hypoxia: Onset Date: 06/06/20 Code(s): J96.01 - Acute respiratory failure with hypoxia Status: Acute Assessment and Plan: Likely secondary to COVID-19 pneumonia with test results positive 06/04/20. Chest CTA was negative for pulmonary embolism. Pulmonology was consulted 06/06 given increased oxygen requirements. Echocardiogram ordered due to progressive oxygen requirements shows normal LV systolic function with EF 55-60%, grade I diastolic dysfunction, mild left atrial enlargement, mild aortic sclerosis, and trace mitral regurgitation. He is on 15 liters high-flow and 15 liters non-rebreather with oxygen saturation 92-94% today and RN notes it is 98% when he is lying prone. Pulmonology was consulted today and input is greatly appreciated Continue supplemental oxygen as needed to maintain oxygen saturation >90%, wean as tolerated. Appreciate respiratory therapy recommendations. Continue plan for treatment of COVID-19 pneumonia as outlined below Continue continuous pulse oximetry (2) Pneumonia due to COVID-19 virus: Onset Date: 06/02/20 Code(s): U07.1 - COVID-19; J12.82 - Pneumonia due to coronavirus disease 2019 Status: Acute Assessment and Plan: The patient presented with non-productive cough, fever, mild headache and fatigue. CXR demonstrated mild scattered bilateral opacities. Chest CTA negative for pulmonary embolism but does show patchy, extensive ground glass opacities compatible with pneumonia with known possible COVID-19 exposure. SARS-CoV-2 testing performed 06/02/20 was positive on 06/04/20. Repeat CXR relatively unchanged with patchy infiltrates bilaterally. Continue dexamethasone (day 8 - initiated 06/02/20) Continue remdesivir (day 6 - initiated 06/04/20) He received convalescent plasma 06/05/20 Continue supportive care with albuterol per MDI, expectorant, tylenol as needed for fever, PEP therapy, prone positioning as tolerated, and incentive spirometry Continue isolation precautions Urinary pneumococcal and legionella antigen testing negative. Sputum culture was inadequate due to squamous cells. Repeat sputum culture ordered and pending but cough is nonproductive. Blood cultures obtained and final cultures demonstrate no growth IV antibiotics were discontinued 06/04/20 when positive COVID-19 test results were available as secondary bacterial infection is felt unlikely (3) Sepsis: Qualifiers: Sepsis type: sepsis due to unspecified organism Sepsis acute organ dysfunction status: with acute organ dysfunction Severe sepsis acute organ dysfunction type: acute respiratory failure Acute respiratory failure type: with hypoxia Severe sepsis shock status: without septic shock Qualified Code(s): A41.9 - Sepsis, unspecified organism; R65.20 - Severe sepsis without septic shock; J96.01 - Acute respiratory failure with hypoxia Code(s): A41.9 - Sepsis, unspecified organism Status: Acute Assessment and Plan: Met on admission with fever and tachycardia. He is hemodynamically stable. Blood cultures were obtained and final cultures show no growth. Secondary to COVID-19 pneumonia. He afebrile with normal WBC. Await results of final blood cultures Monitor vitals and urine output (4) Acute renal injury: Code(s): N17.9 - Acute kidney failure, unspecified Status: Resolved Assessment and Plan: Resolved. Cr was 1.4 on admission and BUN 32. He was given 1 liter of fluids in the emergency department. Cr is 1.0 and BUN 32 today and he is likely back to baseline. Continue to monitor Renally dose medications, avoid nephrotoxins (5) Transaminitis: Code(s): R74.01 - Elevation of levels of liver transaminase levels Status: Acute Assessment and Plan: Likely secondary to COVID-19 infection. Hepatitis panel is negative. LFTs are normal toda
[2020-06-09] MEDS: TAMSULOSIN HCL 0.4 MG CAPSULE PO (09:35)
[2020-06-09] MEDS: guaiFENesin 12 HR 600 MG TABCR 1200 MG PO ×2 (09:35→22:43)
[2020-06-09] MEDS: ENOXAPARIN 40 MG/0.4 ML SYRINGE SUB-Q ×2 (09:36→22:42)
[2020-06-09] MEDS: ASCORBIC ACID 500 MG TABLET 1000 MG PO (09:36)
[2020-06-09] MEDS: PANTOPRAZOLE 40 MG TABLET PO (09:36)
[2020-06-09] MEDS: DOCUSATE SODIUM 100 MG CAPSULE PO ×2 (09:36→22:44)
[2020-06-09] MEDS: ASPIRIN 81 MG ENTERIC TABLET PO (09:36)
[2020-06-09] MEDS: ramipriL 5 MG CAPSULE PO (09:36)
[2020-06-09] MEDS: polyethylene glycoL 3350 17 GM POWD.PACK PO (09:38)
--- NOTE | 2020-06-09 12:47 | PM.PNPUL ---
Progress Note: A&P Assessment and Plan (1) Pneumonia due to COVID-19 virus: Onset Date: 06/02/20 Code(s): U07.1 - COVID-19; J12.82 - Pneumonia due to coronavirus disease 2019 Status: Acute Assessment and Plan: Continue with Remdesivir and Dexamethasone for a total of 10 days Continue DVT prophylaxis with Lovenox 40 mg subcu Q12h encouraged to lay in prone positioning for 12-16 hours a day as tolerated (2) Acute respiratory failure with hypoxia: Onset Date: 06/06/20 Code(s): J96.01 - Acute respiratory failure with hypoxia Status: Acute Assessment and Plan: continue high-flow oxygen and BiPAP to maintain O2 saturations 92-96% or above. Continue to encourage prone positioning for 12-16 hours a day as tolerated. (3) Coronary artery disease: Code(s): I25.10 - Atherosclerotic heart disease of [place] coronary artery without angina pectoris Status: Chronic (4) Dyslipidemia: Code(s): E78.5 - Hyperlipidemia, unspecified Status: Chronic Subjective Date/time seen: 06/09/20 12:47 Interval history: He has not significantly improved and is still requiring very high amounts of oxygen to maintain his saturations within acceptable limits. He gets very short of breath with minimal exertion such as transferring to the side of the bed. He was not able to do prone positioning very long due to significant discomfort. I had a long talk with him and his by phone regarding expectations, code status and the severe prognosis of his illness. We talked about the possibility of intubation should his condition deteriorate. He said him and his have a lot to think about and will let us know if anything changes regarding his code status but for now he is still full code. Review of Systems Review of Systems: All systems reviewed & are unremarkable except as noted in HPI and below Exam Const: General: cooperative, healthy appearing, comfortable and no acute distress Orientation/consciousness: oriented to person, oriented to place and oriented to time HENMT: Head: normal to inspection Ears: hearing grossly normal bilaterally Mouth: Yes Normal oral and palatal mucosa present Throat: tonsils absent Eyes: General: appearance normal, both eyes and all related structures Neck: Neck: normal visual inspection and no JVD Chest: Chest palpation & inspection: normal inspection of the chest Resp: Auscultation: crackles, no rales, no rhonchi and no wheezes Cardio: Jugular venous distension: no JVD Rate: regular rate GI: Inspection: normal to inspection and non-distended GI Palp: Yes Soft to palpation, No Tenderness to palpation present (GI) and No Guarding due to palpation present (GI) Skin: General skin exam: normal color Neuro: General: oriented to person, oriented to place and oriented to time Speech: normal speech Extrem: General: normal to inspection and no edema Psych: Appearance: grossly normal Mental Status: mental status grossly normal Affect: normal affect Objective Data Vital Signs Vital Signs: Vital Signs - 24 hr 06/08/20 12:53 06/08/20 14:00 06/08/20 16:00 Temperature 36.6 C Pulse Rate 89 89 81 Respiratory Rate 24 H 24 H Blood Pressure 128/76 Pulse Oximetry 100 06/08/20 16:20 06/08/20 16:41 06/08/20 18:00 Temperature Pulse Rate 90 88 90 Respiratory Rate 24 H 24 H Blood Pressure Pulse Oximetry 06/08/20 20:00 06/08/20 20:25 06/08/20 20:34 Temperature 36.9 C Pulse Rate 103 H 106 H 87 Respiratory Rate 20 24 H Blood Pressure 132/65 Pulse Oximetry 97 06/08/20 20:35 06/08/20 20:47 06/08/20 22:00 Temperature Pulse Rate 88 104 H Respiratory Rate 24 H Blood Pressure Pulse Oximetry 94 06/08/20 23:50 06/08/20 23:56 06/09/20 00:00 Temperature 36.6 C Pulse Rate 88 70 Respiratory Rate 22 H Blood Pressure 118/63 Pulse Oximetry 98 99 06/09/20 00:45 06/09/20 00:55 06/09/20 02
[2020-06-09] MEDS: REMDESIVIR 100 MG/NS 250 ML 100 MG/250 ML BAG 250 MG IVPB (12:57)
[2020-06-09] MEDS: DEXAMETHASONE SOD PHOS INJ 4 MG/ML VIAL 6 MG IV PUSH (22:42)
[2020-06-09] MEDS: CLOPIDOGREL BISULFATE 75 MG TABLET PO (22:43)
[2020-06-09] MEDS: METOPROLOL SUCCINATE EXT REL 25 MG TABCR PO (22:44)
[2020-06-09] MEDS: MAGNESIUM OXIDE 400 MG TABLET PO (22:44)
[2020-06-09] MEDS: ROSUVASTATIN 10 MG TABLET PO (22:45)
[2020-06-09] MEDS: SODIUM CHLORIDE NASAL GEL 14.1 GM 1 APPLIC NASAL (22:45)
[2020-06-10] VITALS (31 sets, daily range): BP systolic 107–130; BP diastolic 58–68; PULSE 80–119; RESP 20–24; TEMP 35.9–36.9; O2SAT 88–97
[2020-06-10 05:00] LABS: Basophils Percent Auto 0.1 % (0.2-1.2); Hematocrit 43.9 % (42.0-52.0); Hemoglobin 14.4 g/dL (14.0-18.0); Immature Granulocyte Absolute 0.06 K/mm3 (0.00-0.031); Immature Granulocyte Percent A 0.6 % (0-0.5); Lymphocytes Absolute Auto 0.69 K/mm3 (0.9-3.2); Lymphocytes Percent Auto 6.9 % (18.3-44.2); Mean Corpuscular HGB Conc 32.8 g/dl (32-36); Mean Corpuscular Volume 88.3 fl (80-100); Monocytes Absolute Auto 0.2 K/mm3 (0.1-0.6); Monocytes Percent Auto 1.8 % (2.6-8.5); Neutrophils Percent Auto 90.6 % (45.5-73.1); Platelet Count Result 350 k/mm3 (150-375); Red Blood Count 4.97 M/mm3 (4.6-6.20); Red Cell Distribution Width 13.6 % (11.5-14.5)
[2020-06-10 07:35] LABS: Alanine Aminotransferase 36 U/L (4-50); Albumin Level 3.1 g/dL (3.5-5.1); Alkaline Phosphatase 89 U/L (38-126); Anion Gap 5 mmol/L (8-16); Aspartate Amino Transferase 45 U/L (17-59); Bilirubin,Total 0.9 mg/dL (0.2-1.3); Blood Urea Nitrogen 30 mg/dL (9-20); CRP 7.8 mg/dL (<1.0); Calcium 8.6 mg/dL (8.4-10.2); Carbon Dioxide 24 mmol/L (22-30); Chloride 107 mmol/L (98-107); Creatine Kinase 146 U/L (55-170); Estimated CRCL calculation 64 ml/min; Estimated Glomerular Filt Rate > 60; Glucose 169 mg/dL (75-110); Lactate Dehydrogenase 1232 U/L (313-618); Magnesium 2.4 mg/dL (1.6-2.3); Sodium 136 mmol/L (137-145)
[2020-06-10 07:39] LABS: Potassium 5.5 mmol/L (3.4-5.0)
[2020-06-10] MEDS: guaiFENesin 12 HR 600 MG TABCR 1200 MG PO ×2 (09:07→20:41)
[2020-06-10] MEDS: ASPIRIN 81 MG ENTERIC TABLET PO (09:07)
[2020-06-10] MEDS: DOCUSATE SODIUM 100 MG CAPSULE PO ×2 (09:07→20:40)
[2020-06-10] MEDS: PANTOPRAZOLE 40 MG TABLET PO (09:07)
[2020-06-10] MEDS: ASCORBIC ACID 500 MG TABLET 1000 MG PO (09:08)
[2020-06-10] MEDS: TAMSULOSIN HCL 0.4 MG CAPSULE PO (09:08)
[2020-06-10] MEDS: ENOXAPARIN 40 MG/0.4 ML SYRINGE SUB-Q ×2 (09:08→20:40)
[2020-06-10] MEDS: ramipriL 5 MG CAPSULE PO (09:08)
[2020-06-10 10:14] LABS: Potassium 4.3 mmol/L (3.4-5.0)
[2020-06-10] MEDS: REMDESIVIR 100 MG/NS 250 ML 100 MG/250 ML BAG 250 MG IVPB (10:23)
--- NOTE | 2020-06-10 10:44 | PM.PNPUL ---
Progress Note: A&P Assessment and Plan (1) Pneumonia due to COVID-19 virus: Onset Date: 06/02/20 Code(s): U07.1 - COVID-19; J12.82 - Pneumonia due to coronavirus disease 2019 Status: Acute Assessment and Plan: Continue with Remdesivir and Dexamethasone for a total of 10 days Continue DVT prophylaxis with Lovenox 40 mg subcu Q12h encouraged to lay in prone positioning for 12-16 hours a day as tolerated (2) Acute respiratory failure with hypoxia: Onset Date: 06/06/20 Code(s): J96.01 - Acute respiratory failure with hypoxia Status: Acute Assessment and Plan: We will attempt to switch to Air[employer] highflow oxygen alone at 60 liters and 90% with goal sats of 88% or better Would benefit from being up into a chair during the day for as long as possible Continue to encourage prone positioning for 12-16 hours a day as tolerated. (3) Coronary artery disease: Code(s): I25.10 - Atherosclerotic heart disease of [place] coronary artery without angina pectoris Status: Chronic (4) Dyslipidemia: Code(s): E78.5 - Hyperlipidemia, unspecified Status: Chronic Subjective Date/time seen: 06/10/20 10:44 Interval history: He feels about the same as he did yesterday. He appears comfortable while lying in bed. There has been no significant change in his oxygenation demand. Appetite is still good and he is taking oral intake adequately. Review of Systems Review of Systems: All systems reviewed & are unremarkable except as noted in HPI and below Exam Const: General: cooperative, healthy appearing, comfortable and no acute distress Orientation/consciousness: oriented to person, oriented to place and oriented to time HENMT: Head: normal to inspection Ears: hearing grossly normal bilaterally Mouth: Yes Normal oral and palatal mucosa present Throat: tonsils absent Eyes: General: appearance normal, both eyes and all related structures Neck: Neck: normal visual inspection and no JVD Chest: Chest palpation & inspection: normal inspection of the chest Resp: Auscultation: crackles, no rales, no rhonchi and no wheezes Cardio: Jugular venous distension: no JVD Rate: regular rate GI: Inspection: normal to inspection and non-distended GI Palp: Yes Soft to palpation, No Tenderness to palpation present (GI) and No Guarding due to palpation present (GI) Skin: General skin exam: normal color Neuro: General: oriented to person, oriented to place and oriented to time Speech: normal speech Extrem: General: normal to inspection and no edema Psych: Appearance: grossly normal Mental Status: mental status grossly normal Affect: normal affect Objective Data Vital Signs Vital Signs: Vital Signs - 24 hr 06/09/20 12:00 06/09/20 12:40 06/09/20 12:50 Temperature 36.8 C Pulse Rate 89 91 95 Respiratory Rate 20 24 H 24 H Blood Pressure 122/76 Pulse Oximetry 96 06/09/20 14:00 06/09/20 15:55 06/09/20 16:00 Temperature 36.8 C Pulse Rate 86 93 93 Respiratory Rate 24 H 22 H Blood Pressure 132/71 Pulse Oximetry 91 98 06/09/20 16:05 06/09/20 16:20 06/09/20 18:00 Temperature Pulse Rate 97 96 115 H Respiratory Rate 16 16 Blood Pressure Pulse Oximetry 06/09/20 19:48 06/09/20 20:00 06/09/20 22:00 Temperature 36.1 C L Pulse Rate 104 H 112 H 100 Respiratory Rate 18 22 H Blood Pressure 103/43 L Pulse Oximetry 97 96 06/09/20 22:44 06/09/20 23:45 06/10/20 00:00 Temperature 36.4 C L Pulse Rate 111 H 105 H 105 H Respiratory Rate 24 H 20 Blood Pressure 130/64 Pulse Oximetry 97 06/10/20 00:01 06/10/20 02:00 06/10/20 03:28 Temperature Pulse Rate 106 H 80 Respiratory Rate 22 H Blood Pressure Pulse Oximetry 97 06/10/20 04:00 06/10/20 04:05 06/10/20 04:21 Temperature 36.3 C L Pulse Rate 93 98 91 Respiratory Rate 22 H 22 H 22 H Blood Pressure 127/66 Pulse Oximetry 95 06/10/20 06:00 06/10/20
--- NOTE | 2020-06-10 10:57 | PCDIET ---
Weekly nutritional screen. Patient is tolerating current diet with adequate intake - 70% average since 06/04/20. No weight loss reported. No nutritional needs at this time.
--- NOTE | 2020-06-10 16:10 | PM.IMPN ---
Progress Note: A&P Assessment and Plan (1) Acute respiratory failure with hypoxia: Onset Date: 06/06/20 Code(s): J96.01 - Acute respiratory failure with hypoxia Status: Acute Assessment and Plan: Secondary to COVID-19 pneumonia with test results positive 06/04/20. Chest CTA was negative for pulmonary embolism. Pulmonology was consulted 06/06 given increased oxygen requirements. Echocardiogram ordered due to progressive oxygen requirements showed normal LV systolic function with EF 55-60%, grade I diastolic dysfunction, mild left atrial enlargement, mild aortic sclerosis, and trace mitral regurgitation. He is currently on Airvo 60 L/min with FiO2 77%. Pulmonology is following and input is greatly appreciated Continue supplemental oxygen as needed to maintain oxygen saturation >90%, wean as tolerated. Appreciate respiratory therapy recommendations. Continue treatment of COVID-19 pneumonia as outlined below Continue continuous pulse oximetry (2) Pneumonia due to COVID-19 virus: Onset Date: 06/02/20 Code(s): U07.1 - COVID-19; J12.82 - Pneumonia due to coronavirus disease 2019 Status: Acute Assessment and Plan: Tested positive on 06/04/20. The patient presented with non-productive cough, fever, mild headache and fatigue. CXR demonstrated mild scattered bilateral opacities. Chest CTA showed patchy, extensive ground glass opacities compatible with pneumonia. Repeat CXR relatively unchanged with patchy infiltrates bilaterally. Continue dexamethasone (initiated 06/02/20) Continue remdesivir initiated 06/04/20) He received convalescent plasma 06/05/20 Continue supportive care with albuterol per MDI, expectorant, tylenol as needed for fever, PEP therapy, prone positioning as tolerated, and incentive spirometry Continue isolation precautions Urinary pneumococcal and legionella antigen testing negative. Sputum culture was inadequate due to squamous cells. Repeat sputum culture ordered and pending but cough is nonproductive. Blood cultures obtained and final cultures demonstrate no growth IV antibiotics were discontinued 06/04/20 when positive COVID-19 test results were available as secondary bacterial infection is felt unlikely Transfer to [facility] being considered. Please see subjective portion of note. (3) Sepsis: Qualifiers: Sepsis type: sepsis due to unspecified organism Sepsis acute organ dysfunction status: with acute organ dysfunction Severe sepsis acute organ dysfunction type: acute respiratory failure Acute respiratory failure type: with hypoxia Severe sepsis shock status: without septic shock Qualified Code(s): A41.9 - Sepsis, unspecified organism; R65.20 - Severe sepsis without septic shock; J96.01 - Acute respiratory failure with hypoxia Code(s): A41.9 - Sepsis, unspecified organism Status: Acute Assessment and Plan: Met on admission with fever and tachycardia. He is hemodynamically stable. Blood cultures were obtained and final cultures show no growth. Secondary to COVID-19 pneumonia. He afebrile with normal WBC. Await results of final blood cultures Monitor vitals and urine output (4) Acute renal injury: Code(s): N17.9 - Acute kidney failure, unspecified Status: Resolved Assessment and Plan: Resolved. Cr was 1.4 on admission and BUN 32. He was given 1 liter of fluids in the emergency department. Cr is 1.0 and BUN 30 today and he is likely back to baseline. Continue to monitor Renally dose medications, avoid nephrotoxins (5) Transaminitis: Code(s): R74.01 - Elevation of levels of liver transaminase levels Status: Acute Assessment and Plan: Likely secondary to COVID-19 infection. Hepatitis panel is negative. LFTs are normal today. Monitor closely given concurrent remdesivir therapy. Continue to monitor (6) Hiatal hernia: Code(s): K44.9 - Diaphragmatic hernia without
[2020-06-10] MEDS: CLOPIDOGREL BISULFATE 75 MG TABLET PO (20:41)
[2020-06-10] MEDS: SODIUM CHLORIDE NASAL GEL 14.1 GM 1 APPLIC NASAL (20:41)
[2020-06-10] MEDS: DEXAMETHASONE SOD PHOS INJ 4 MG/ML VIAL 6 MG IV PUSH (20:41)
[2020-06-10] MEDS: METOPROLOL SUCCINATE EXT REL 25 MG TABCR PO (20:42)
[2020-06-11] VITALS (29 sets, daily range): BP systolic 105–129; BP diastolic 61–75; PULSE 76–98; RESP 18–24; TEMP 35.7–36.2; O2SAT 90–97
[2020-06-11 05:14] LABS: Hematocrit 42.7 % (42.0-52.0); Hemoglobin 14.1 g/dL (14.0-18.0); Mean Corpuscular Hemoglobin 29.3 pg (26-34); Mean Corpuscular Volume 88.8 fl (80-100); Mean Platelet Volume 10.1 fl (7.4-10.4); Platelet Count Result 346 k/mm3 (150-375); Red Blood Count 4.81 M/mm3 (4.6-6.20); Red Cell Distribution Width 13.9 % (11.5-14.5); White Blood Count 10.4 K/mm3 (4.5-10.0)
[2020-06-11 05:30] LABS: Alanine Aminotransferase 33 U/L (4-50); Albumin Level 2.9 g/dL (3.5-5.1); Alkaline Phosphatase 94 U/L (38-126); Anion Gap 4 mmol/L (8-16); Aspartate Amino Transferase 36 U/L (17-59); Bilirubin,Total 0.6 mg/dL (0.2-1.3); Blood Urea Nitrogen 30 mg/dL (9-20); CRP 7.6 mg/dL (<1.0); Calcium 8.5 mg/dL (8.4-10.2); Carbon Dioxide 24 mmol/L (22-30); Chloride 108 mmol/L (98-107); Estimated CRCL calculation 70 ml/min; Estimated Glomerular Filt Rate > 60; Glucose 147 mg/dL (75-110); Potassium 4.4 mmol/L (3.4-5.0); Sodium 136 mmol/L (137-145)
[2020-06-11] MEDS: ramipriL 5 MG CAPSULE PO (10:07)
[2020-06-11] MEDS: DOCUSATE SODIUM 100 MG CAPSULE PO (10:07)
[2020-06-11] MEDS: ASCORBIC ACID 500 MG TABLET 1000 MG PO (10:07)
[2020-06-11] MEDS: guaiFENesin 12 HR 600 MG TABCR 1200 MG PO (10:07)
[2020-06-11] MEDS: TAMSULOSIN HCL 0.4 MG CAPSULE PO (10:07)
[2020-06-11] MEDS: PANTOPRAZOLE 40 MG TABLET PO (10:07)
[2020-06-11] MEDS: ASPIRIN 81 MG ENTERIC TABLET PO (10:07)
[2020-06-11] MEDS: ENOXAPARIN 40 MG/0.4 ML SYRINGE SUB-Q (10:08)
[2020-06-11] MEDS: REMDESIVIR 100 MG/NS 250 ML 100 MG/250 ML BAG 250 MG IVPB (10:08)
--- NOTE | 2020-06-11 13:14 | PM.PNPUL ---
Progress Note: A&P Assessment and Plan (1) Pneumonia due to COVID-19 virus: Onset Date: 06/02/20 Code(s): U07.1 - COVID-19; J12.82 - Pneumonia due to coronavirus disease 2019 Status: Acute Assessment and Plan: Continue with Remdesivir and Dexamethasone for a total of 10 days Continue DVT prophylaxis with Lovenox 40 mg subcu Q12h encouraged to lay in prone positioning for 12-16 hours a day as tolerated (2) Acute respiratory failure with hypoxia: Onset Date: 06/06/20 Code(s): J96.01 - Acute respiratory failure with hypoxia Status: Acute Assessment and Plan: We will attempt to switch to Airvo highflow oxygen alone at 60 liters and 90% with goal sats of 88% or better Would benefit from being up into a chair during the day for as long as possible Continue to encourage prone positioning for 12-16 hours a day as tolerated. (3) Coronary artery disease: Code(s): I25.10 - Atherosclerotic heart disease of [place] coronary artery without angina pectoris Status: Chronic (4) Dyslipidemia: Code(s): E78.5 - Hyperlipidemia, unspecified Status: Chronic Subjective Date/time seen: 06/11/20 13:14 Interval history: He feels about the same today. there has been no significant change in his oxygen demands. Review of Systems Review of Systems: All systems reviewed & are unremarkable except as noted in HPI and below Exam Const: General: cooperative, healthy appearing, comfortable and no acute distress Orientation/consciousness: oriented to person, oriented to place and oriented to time HENMT: Head: normal to inspection Ears: hearing grossly normal bilaterally Mouth: Yes Normal oral and palatal mucosa present Throat: tonsils absent Eyes: General: appearance normal, both eyes and all related structures Neck: Neck: normal visual inspection and no JVD Chest: Chest palpation & inspection: normal inspection of the chest Resp: Auscultation: crackles, no rales, no rhonchi and no wheezes Cardio: Jugular venous distension: no JVD Rate: regular rate GI: Inspection: normal to inspection and non-distended GI Palp: Yes Soft to palpation, No Tenderness to palpation present (GI) and No Guarding due to palpation present (GI) Skin: General skin exam: normal color Neuro: General: oriented to person, oriented to place and oriented to time Speech: normal speech Extrem: General: normal to inspection and no edema Psych: Appearance: grossly normal Mental Status: mental status grossly normal Affect: normal affect Objective Data Vital Signs Vital Signs: Vital Signs - 24 hr 06/10/20 14:00 06/10/20 16:00 06/10/20 16:33 Temperature 36.1 C L Pulse Rate 112 H 99 96 Respiratory Rate 23 H 20 Blood Pressure 107/58 L Pulse Oximetry 96 06/10/20 16:40 06/10/20 18:00 06/10/20 20:00 Temperature 36.3 C L Pulse Rate 102 H 109 H 109 H Respiratory Rate 20 20 Blood Pressure 130/67 Pulse Oximetry 91 06/10/20 20:42 06/10/20 21:15 06/10/20 21:19 Temperature Pulse Rate 119 H 112 H 111 H Respiratory Rate 20 Blood Pressure Pulse Oximetry 92 06/10/20 21:53 06/10/20 22:00 06/10/20 23:36 Temperature 36.4 C Pulse Rate 110 H 111 H 97 Respiratory Rate 20 22 H Blood Pressure 127/64 Pulse Oximetry 96 06/11/20 00:00 06/11/20 01:48 06/11/20 01:55 Temperature Pulse Rate 96 78 78 Respiratory Rate 20 Blood Pressure Pulse Oximetry 95 95 06/11/20 02:00 06/11/20 02:05 06/11/20 04:00 Temperature 35.9 C L Pulse Rate 81 83 86 Respiratory Rate 22 H 24 H Blood Pressure 123/75 Pulse Oximetry 94 06/11/20 05:10 06/11/20 05:28 06/11/20 06:00 Temperature Pulse Rate 80 84 92 Respiratory Rate 20 24 H Blood Pressure Pulse Oximetry 06/11/20 08:00 06/11/20 08:15 06/11/20 08:25 Temperature Pulse Rate 96 85 87 Respiratory Rate 20 20 Blood Pressure Pulse Oximetry 93 93 06/11/20 08:43 02
--- NOTE | 2020-06-11 16:32 | PM.TDS ---
Transfer Discharge Sum: Prov Provider Date of admission: 06/03/20 12:40 Primary care physician: Mirza Moore, MD Admitting clinician: Jany Robert DO Consults: 06/06/20 Consult to Physician Routine Comment: SPOKE TO DR [id number] ([place],) Consulting Provider: Grant Montoya box truck driver/MD group to consult: Pulmonology Reason for consultation: COVID-19, worsening hypoxia and now requiring 11 liters high-flow per NC Has provider been notified: Yes DS: Admitting Diagnosis Admitting Diagnosis Admitting Diagnosis: COVID-19 pneumonia DS: Discharge Diagnosis Discharge Diagnosis (1) Acute respiratory failure with hypoxia: Onset Date: 06/06/20 Code(s): J96.01 - Acute respiratory failure with hypoxia Status: Acute Assessment and Plan: Secondary to COVID-19 pneumonia with test results positive 06/04/20. Chest CTA was negative for pulmonary embolism. Pulmonology was consulted 06/06 given increased oxygen requirements. Echocardiogram ordered due to progressive oxygen requirements showed normal LV systolic function with EF 55-60%, grade I diastolic dysfunction, mild left atrial enlargement, mild aortic sclerosis, and trace mitral regurgitation. He is currently on Airvo 45 L/min with FiO2 85%. Pulmonology is following and input is greatly appreciated Continue supplemental oxygen as needed to maintain oxygen saturation >90%, wean as tolerated. Appreciate respiratory therapy recommendations. Continue treatment of COVID-19 pneumonia as outlined below Continue continuous pulse oximetry Patient has been accepted for transfer to [facility] under care of Dr. Leonides Connor given family request for higher level of care. Patient will be transferred on 100% non-rebreather. This has been trialed and patient is able to tolerate this for extended duration. Discussed with pulmonology and camera mechanic at [facility]. He is hemodynamically stable for transfer. (2) Pneumonia due to COVID-19 virus: Onset Date: 06/02/20 Code(s): U07.1 - COVID-19; J12.82 - Pneumonia due to coronavirus disease 2019 Status: Acute Assessment and Plan: Tested positive on 06/04/20. The patient presented with non-productive cough, fever, mild headache and fatigue. CXR demonstrated mild scattered bilateral opacities. Chest CTA showed patchy, extensive ground glass opacities compatible with pneumonia. Repeat CXR relatively unchanged with patchy infiltrates bilaterally. Continue dexamethasone (initiated 06/02/20) Continue remdesivir initiated 06/04/20) He received convalescent plasma 06/05/20 Continue supportive care with albuterol per MDI, expectorant, tylenol as needed for fever, PEP therapy, prone positioning as tolerated, and incentive spirometry Continue isolation precautions Urinary pneumococcal and legionella antigen testing negative. Sputum culture was inadequate due to squamous cells. Repeat sputum culture ordered and pending but cough is nonproductive. Blood cultures obtained and final cultures demonstrate no growth IV antibiotics were discontinued 06/04/20 when positive COVID-19 test results were available as secondary bacterial infection is felt unlikely (3) Sepsis: Qualifiers: Sepsis type: sepsis due to unspecified organism Sepsis acute organ dysfunction status: with acute organ dysfunction Severe sepsis acute organ dysfunction type: acute respiratory failure Acute respiratory failure type: with hypoxia Severe sepsis shock status: without septic shock Qualified Code(s): A41.9 - Sepsis, unspecified organism; R65.20 - Severe sepsis without septic shock; J96.01 - Acute respiratory failure with hypoxia Code(s): A41.9 - Sepsis, unspecified organism Status: Acute Assessment and Plan: Met on admission with fever and tachycardia. He is hemodynamically stable. Blood cultures were obtained and final cultures show no growth. Secondary to COVID-19 pneumonia. He
== END 2020-06-11 19:33 | disposition short-term general hospital (02) | DRG 871 ==
LOC: ANHED 17:48 → ANH3MEDSUR 20:47 → ANHIMU 06-10 07:08 → ANH3MEDSUR 06-13 13:22 → ANHIMU 06-13 13:22
PROVIDERS: Internal Medicine Pulmonary Disease; Physician Assistant; Admitting Provider Internal Medicine; Emergency Provider Emergency Medicine; PCP Internal Medicine; Visit Provider Physician Assistant
DX: A41.89 Other specified sepsis (principal); J96.01 Acute respiratory failure with hypoxia; U07.1 COVID-19; J12.82 Pneumonia due to coronavirus disease 2019; N17.9 Acute kidney failure, unspecified; R65.20 Severe sepsis without septic shock; R93.89 Abnormal findings on diagnostic imaging of other specified body structures; N40.1 Benign prostatic hyperplasia with lower urinary tract symptoms; R35.0 Frequency of micturition; R31.29 Other microscopic hematuria; N39.43 Post-void dribbling; R74.01 Elevation of levels of liver transaminase levels; K44.9 Diaphragmatic hernia without obstruction or gangrene; I25.10 Atherosclerotic heart disease of native coronary artery without angina pectoris; E78.5 Hyperlipidemia, unspecified; I10 Essential (primary) hypertension; K58.9 Irritable bowel syndrome, unspecified; Z28.21 Immunization not carried out because of patient refusal; Z79.899 Other long term (current) drug therapy; Z85.828 Personal history of other malignant neoplasm of skin; Z86.14 Personal history of Methicillin resistant Staphylococcus aureus infection; Z86.73 Personal history of transient ischemic attack (TIA), and cerebral infarction without residual deficits; Z87.891 Personal history of nicotine dependence; Z95.1 Presence of aortocoronary bypass graft
CPT/HCPCS: 36415; 36430; 36600; 71045; 71275; 80053; 80074; 81001; 82306; 82550; 82728; 82805; 83036; 83615; 83735; 83880; 84132; 84484; 85025; 85027; 85380; 86140; 86900; 86901; 87040; 87070; 87086; 87205; 87449; 87804; 87899; 93005; 93306; 94640; 94667; 94668; 96361; 96365; 96367; 96372; 96375; 97110; 97161; 97165; 99291; A9270; C9803; G0378; J0456; J0696; J1100; J1650; J1940; J7030; J7050; P9059; Q9967; U0003; U0005